=== PATIENT | female | born 1945 | race Caucasian/White ===

== ENCOUNTER 2018-12-03 09:04 | Emergency (ER) | payer OTHER, BC ==
[2018-12-03] MEDS ORDERED: TETANUS & DIPHTHERIA TOX,ADULT 0.5 ML VIAL ONE (11:23)
--- NOTE | 2018-12-03 11:27 | RAD REPORT ---
EXAM DESCRIPTION: RAD - Foot Left 3 View - 12/03/2018 10:35 am CLINICAL HISTORY: Left Foot pain FINDINGS: No fracture or dislocation is seen. No radiopaque foreign body seen
--- NOTE | 2018-12-03 11:42 | EDPHYS ---
Physician Documentation [facility] Name: Aniya Goldstein Age: 73 yrs Sex: Female : 1945 Arrival Date: 12/03/2018 Time: 09:07 Bed 24 Private MD: Chapincito Polanco E ED Physician Kayode Hanson HPI: 12/03 12:22 This 73 yrs old Female presents to ER via Ambulatory with complaints of Foot kb Injury. 12:24 The patient presents with a contusion, an injury, pain, tenderness. The complaints kb affect the left foot. Context: The problem was sustained outdoors, resulted from stumbled after stepping on a nail while fixing a fence, the patient can partially bear weight, the patient is able to ambulate. Onset: The symptoms/episode began/occurred yesterday. Modifying factors: The symptoms are alleviated by nothing, the symptoms are aggravated by weight bearing. Associated signs and symptoms: The patient has no apparent associated signs or symptoms. Severity of symptoms: At their worst the symptoms were moderate, in the emergency department the symptoms are unchanged. The patient has not experienced similar symptoms in the past. The patient has not recently seen a physician. Pt reports she was fixing a fence yesterday and threw a board down that had a nail in it. She accidentally stepped on the nail and when she tried to pull it out she fell. . Historical: - Allergies: 09:25 PENICILLINS; aa5 - PMHx: 09:25 Glaucoma; Chronic back pain and hip pain; aa5 - Immunization history:: Last tetanus immunization: unknown. - Social history:: Smoking status: Patient/guardian denies using tobacco. - Ebola Screening: : No symptoms or risks identified at this time. ROS: 12:19 Constitutional: Negative for fever, chills, and weight loss, Neck: Negative for injury, kb pain, and swelling, Cardiovascular: Negative for chest pain, palpitations, and edema, Respiratory: Negative for shortness of breath, cough, wheezing, and pleuritic chest pain, Abdomen/GI: Negative for abdominal pain, nausea, vomiting, diarrhea, and constipation, Back: Negative for injury and pain, Neuro: Negative for headache, weakness, numbness, tingling, and seizure. 12:19 MS/extremity: Positive for injury or acute deformity, contusion, ecchymosis, pain, puncture, of the left foot. Exam: 12:19 Constitutional: This is a well developed, well nourished patient who is awake, alert, kb and in no acute distress. Head/Face: Normocephalic, atraumatic. Chest/axilla: Normal chest wall appearance and motion. Nontender with no deformity. No lesions are appreciated. Cardiovascular: Regular rate and rhythm with a normal S1 and S2. No gallops, murmurs, or rubs. Normal PMI, no JVD. No pulse deficits. Respiratory: Lungs have equal breath sounds bilaterally, clear to auscultation and percussion. No rales, rhonchi or wheezes noted. No increased work of breathing, no retractions or nasal flaring. Abdomen/GI: Soft, non-tender, with normal bowel sounds. No distension or tympany. No guarding or rebound. No evidence of tenderness throughout. Back: No spinal tenderness. No costovertebral tenderness. Full range of motion. Neuro: Awake and alert, GCS 15, oriented to person, place, time, and situation. Cranial nerves II-XII grossly intact. Motor strength 5/5 in all extremities. Sensory grossly intact. Cerebellar exam normal. Normal gait. 12:19 Musculoskeletal/extremity: Extremities: grossly normal except: noted in the left foot: contusion, ecchymosis, pain, ROM: intact in all extremities, Circulation is intact in all extremities. Sensation intact. Weight bearing: able to fully bear weight. Vital Signs: 09:25 BP 97 / 68; Pulse 78; Resp 16 S; Temp 98.5(O); Pulse Ox 98% on R/A; Weight 61.23 kg aa5 (R); Height 5 ft. 5 in. (165.10 cm) (R); Pain 4/10; 11:45 BP 118 / 75; Pulse 60; Resp 18; Pulse Ox 99% on R/A; wh 09:25 Body Mass Index 22.46 (61.23 kg, 165.10 cm) aa5 MDM: 10:49 Patient medically screened. kb 11:39 Data reviewed: vital signs, nurses notes. Data interpreted: Pulse oximetry: on room air kb is 98 %. Interpretation: normal. Counseling: I had a detailed discussion with the patient and/or guardian regarding: the historical points, exam findings, and any diagnostic results supporting the discharge/admit diagnosis, radiology results, the need for outpatient follow up, a family practitioner, to return to the emergency department if symptoms worsen or persist or if there are any questions or concerns that arise at home. 12/03 09:28 Order name: Foot Left 3 View XRAY; Complete Time: 11:34 kb 12/03 11:41 Order name: Orthopedic shoe; Complete Time: 11:46 kb Administered Medications: 11:25 Drug: Tetanus-Diphtheria Toxoid Adult 0.5 ml {Product Marketing Manager: [employer]. Exp: 08/03/2020. Lot #: [id number]. } Route: IM; Site: right deltoid; 12:00 Follow up: Response: No adverse reaction Disposition: 18:59 Co-signature as Attending Physician, Kayode Hanson MD. rn Disposition: 12/03/18 11:40 Discharged to Home. Impression: Puncture wound without foreign body of foot, Contusion of left foot. - Condition is Stable. - Discharge Instructions: Puncture Wound, [id number], Foot Contusion, [id number]. - Medication Reconciliation Form, Thank You Letter, Antibiotic Education, Prescription Opioid Use form. - Follow up: Emergency Department; When: As needed; Reason: Worsening of condition. Follow up: Private Physician; When: 2 - 3 days; Reason: Recheck today's complaints, Continuance of care, Re-evaluation by your physician. Signatures: Dispatcher [employer] EDGA Sandra Gupta, SHIP/REC/DOC CONTROL-C SHIP/REC/DOC CONTROL-Ckb Kayode Hanson MD MD rn Calderon, Audri RN RN aa5 Carla Gerard Corrections: (The following items were deleted from the chart) 12:00 11:40 12/03/2018 11:40 Discharged to Home. Impression: Puncture wound without foreign wh body of foot; Contusion of left foot. Condition is Stable. Forms are Medication Reconciliation Form, Thank You Letter, Antibiotic Education, Prescription Opioid Use. Follow up: Emergency Department; When: As needed; Reason: Worsening of condition. Follow up: Private Physician; When: 2 - 3 days; Reason: Recheck today's complaints, Continuance of care, Re-evaluation by your physician. kb
--- NOTE | 2018-12-03 11:42 | ER ---
Nurse's Notes [facility] Name: Aniya Goldstein Age: 73 yrs Sex: Female : 1945 Arrival Date: 12/03/2018 Time: 09:07 Bed 24 Private MD: Chapincito Polanco E Diagnosis: Puncture wound without foreign body of foot;Contusion of left foot Presentation: 12/03 09:23 Presenting complaint: Patient states: "I stepped on a nail yesterday and fell, the nail aa5 went through my shoe". Pt c/o pain to left foot, bruising noted to left foot. Transition of care: patient was not received from another setting of care. Onset of symptoms was November 2018. Risk Assessment: Do you want to hurt yourself or someone else? Patient reports no desire to harm self or others. Initial Sepsis Screen: Does the patient meet any 2 criteria? No. Patient's initial sepsis screen is negative. Does the patient have a suspected source of infection? No. Patient's initial sepsis screen is negative. Care prior to arrival: None. 09:23 Method Of Arrival: Ambulatory [facility] 09:23 Acuity: DEJAN 4 aa5 Triage Assessment: 10:20 Injury Description: Puncture sustained to ball of left foot. wh Historical: - Allergies: 09:25 PENICILLINS; aa5 - PMHx: 09:25 Glaucoma; Chronic back pain and hip pain; aa5 - Immunization history:: Last tetanus immunization: unknown. - Social history:: Smoking status: Patient/guardian denies using tobacco. - Ebola Screening: : No symptoms or risks identified at this time. Screenin:58 Abuse screen: Denies threats or abuse. Denies injuries from another. Nutritional wh screening: No deficits noted. Tuberculosis screening: No symptoms or risk factors identified. Fall Risk None identified. Assessment: 11:40 General: Appears in no apparent distress. Behavior is calm, cooperative, appropriate wh for age. Pain: Complains of pain in ball of left foot Pain does not radiate. Pain currently is 3 out of 10 on a pain scale. Quality of pain is described as aching. Neuro: Level of Consciousness is awake, alert, obeys commands. Cardiovascular: Capillary refill < 3 seconds. Respiratory: Airway is patent Respiratory effort is even, unlabored, Respiratory pattern is regular, symmetrical. GI: Abdomen is flat, non-distended. : No signs and/or symptoms were reported regarding the genitourinary system. EENT: No signs and/or symptoms were reported regarding the EENT system. Derm: Skin is intact, is healthy with good turgor, Skin is pink, warm \\T\\ dry. normal. Musculoskeletal: Circulation, motion, and sensation intact. Vital Signs: 09:25 BP 97 / 68; Pulse 78; Resp 16 S; Temp 98.5(O); Pulse Ox 98% on R/A; Weight 61.23 kg aa5 (R); Height 5 ft. 5 in. (165.10 cm) (R); Pain 4/10; 11:45 BP 118 / 75; Pulse 60; Resp 18; Pulse Ox 99% on R/A; wh 09:25 Body Mass Index 22.46 (61.23 kg, 165.10 cm) aa5 ED Course: 09:07 Patient arrived in ED. rg4 09:07 Chapincito Polanco MD is Private Physician. rg4 09:23 Arm band placed on. aa5 09:24 Triage completed. aa5 09:25 [facility] Gu[facility]C [facility] kb 09:25 Kayode Hanson MD is Attending Physician. kb 10:37 Foot Left 3 View XRAY In Process Unspecified. EDMS 10:40 Patient has correct armband on for positive identification. Bed in low position. Call light in reach. Side rails up X 1. Pulse ox on. NIBP on. 10:50 Carla Gerard is Primary Nurse. 11:58 No provider procedures requiring assistance completed. Patient did not have IV access during this emergency room visit. Administered Medications: 11:25 Drug: Tetanus-Diphtheria Toxoid Adult 0.5 ml {Etymology Professor: [employer]. Exp: 08/03/2020. Lot #: [id number]. } Route: IM; Site: right deltoid; 12:00 Follow up: Response: No adverse reaction Outcome: 11:40 Discharge ordered by . kb 11:59 Discharged to home ambulatory. 11:59 Condition: good 11:59 Discharge instructions given to patient, Instructed on discharge instructions, follow up and referral plans. wound care, Demonstrated understanding of instructions, follow-up care, wound care. 12:00 Patient left the ED. Signatures: Dispatcher [employer] Sandra Wahl, RN MED SURG-C RN MED SURG-Ckb Angie Obregon, RN RN aa5 Arabella Sapp4 Carla Gerard
[2018-12-03 12:06] VITALS: TEMP 98.5
[2018-12-03 12:08] VITALS: BP 118/75; O2SAT 99
== END 2018-12-03 12:00 | disposition home or self-care (01) ==
LOC: ER 09:04
DX: S91.332A Puncture wound without foreign body, left foot, initial encounter (principal); S90.32XA Contusion of left foot, initial encounter; W45.0XXA Nail entering through skin, initial encounter; Y93.89 Activity, other specified; Y92.89 Other specified places as the place of occurrence of the external cause; Z23 Encounter for immunization; Z88.0 Allergy status to penicillin
CPT/HCPCS: 90471; 90714; 99283

== ENCOUNTER 2020-09-24 11:02 | Emergency (ER) | payer OTHER, BC ==
--- OUTSIDE RECORDS SUMMARY | 2020-09-24 11:58 | XMS REPORT | Continuity of Care Document ---
:1945 Author Organization [facility] Address [address] [place] [address] Dr. Lott [address] [place] [id number] Care Team Providers Name Role Phone Unavailable Unavailable Unavailable Problems This patient has no known problems. Allergies, Adverse Reactions, Alerts This patient has no known allergies or adverse reactions. Medications This patient has no known medications. Procedures This patient has no known procedures. Results This patient has no known results.
--- NOTE | 2020-09-24 13:27 | RAD REPORT ---
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 Trace suprapatellar joint effusion. Subtle lucenc y is seen in the lateral aspect of the patella which could be a nondisplaced fracture. Recommend magalie elation with clinical point tenderness in the lateral patellar region.
--- NOTE | 2020-09-24 14:44 | EDPHYS ---
Physician Documentation [facility] Name: Aniya Goldstein Age: 74 yrs Sex: Female : 1945 Arrival Date: 09/24/2020 Time: 11:04 Bed DX4 Private MD: ED Physician Javid Jerez HPI: 09/24 14:35 This 74 yrs old Female presents to ER via Ambulatory with complaints of Fall charles Injury. 14:35 Details of fall: The patient fell from an upright position, while walking. Onset: The charles symptoms/episode began/occurred 2 day(s) ago. Associated injuries: The patient sustained lateral aspect of right knee and right knee, decreased range of motion, painful injury. Severity of symptoms: At their worst the symptoms were mild, in the emergency department the symptoms are unchanged. The patient has not experienced similar symptoms in the past. Historical: - Allergies: 11:39 PENICILLINS; jl7 - PMHx: 11:39 Chronic back pain and hip pain; Glaucoma; jl7 - Immunization history:: Adult Immunizations up to date, Client reports receiving the 2nd dose of the Covid vaccine. - Social history:: Smoking status: Patient denies any tobacco usage or history of. - Family history:: not pertinent. ROS: 14:35 Constitutional: Negative for fever, chills, and weight loss, Eyes: Negative for injury, charles pain, redness, and discharge, ENT: Negative for injury, pain, and discharge, Neck: Negative for injury, pain, and swelling, Cardiovascular: Negative for chest pain, palpitations, and edema, Respiratory: Negative for shortness of breath, cough, wheezing, and pleuritic chest pain, Abdomen/GI: Negative for abdominal pain, nausea, vomiting, diarrhea, and constipation, Back: Negative for injury and pain, : Negative for injury, bleeding, discharge, and swelling, Skin: Negative for injury, rash, and discoloration, Neuro: Negative for headache, weakness, numbness, tingling, and seizure, Psych: Negative for depression, anxiety, suicide ideation, homicidal ideation, and hallucinations, Allergy/Immunology: Negative for hives, rash, and allergies, Endocrine: Negative for neck swelling, polydipsia, polyuria, polyphagia, and marked weight changes, Hematologic/Lymphatic: Negative for swollen nodes, abnormal bleeding, and unusual bruising. 14:35 MS/extremity: Positive for decreased range of motion, pain, of the lateral aspect of right knee. Exam: 14:35 Constitutional: This is a well developed, well nourished patient who is awake, alert, charles and in no acute distress. Head/Face: Normocephalic, atraumatic. Eyes: Pupils equal round and reactive to light, extra-ocular motions intact. Lids and lashes normal. Conjunctiva and sclera are non-icteric and not injected. Cornea within normal limits. Periorbital areas with no swelling, redness, or edema. ENT: Nares patent. No nasal discharge, no septal abnormalities noted. Tympanic membranes are normal and external auditory canals are clear. Oropharynx with no redness, swelling, or masses, exudates, or evidence of obstruction, uvula midline. Mucous membranes moist. Neck: Trachea midline, no thyromegaly or masses palpated, and no cervical lymphadenopathy. Supple, full range of motion without nuchal rigidity, or vertebral point tenderness. No Meningismus. Chest/axilla: Normal chest wall appearance and motion. Nontender with no deformity. No lesions are appreciated. Cardiovascular: Regular rate and rhythm with a normal S1 and S2. No gallops, murmurs, or rubs. Normal PMI, no JVD. No pulse deficits. Respiratory: Lungs have equal breath sounds bilaterally, clear to auscultation and percussion. No rales, rhonchi or wheezes noted. No increased work of breathing, no retractions or nasal flaring. Abdomen/GI: Soft, non-tender, with normal bowel sounds. No distension or tympany. No guarding or rebound. No evidence of tenderness throughout. Back: No spinal tenderness. No costovertebral tenderness. Full range of motion. Female : Normal external genitalia. Skin: Warm, dry with normal turgor. Normal color with no rashes, no lesions, and no evidence of cellulitis. Neuro: Awake and alert, GCS 15, oriented to person, place, time, and situation. Cranial nerves II-XII grossly intact. Motor strength 5/5 in all extremities. Sensory grossly intact. Cerebellar exam normal. Normal gait. Psych: Awake, alert, with orientation to person, place and time. Behavior, mood, and affect are within normal limits. 14:35 Musculoskeletal/extremity: Extremities: grossly normal except: noted in the right knee: decreased ROM, pain. Vital Signs: 11:38 BP 111 / 64; Pulse 61; Resp 15; Temp 98.9; Pulse Ox 99% on R/A; Pain 3/10; jl7 MDM: 14:11 Patient medically screened. charles 14:35 Differential diagnosis: contusion, fracture, sprain, strain. Data reviewed: vital charles signs, nurses notes, radiologic studies, plain films. Data interpreted: bus driver/monitor: not applicable for this patient encounter. rate is 61 beats/min, Pulse oximetry: on room air is 99 %. Test interpretation: by ED physician or midlevel provider: plain radiologic studies. Counseling: I had a detailed discussion with the patient and/or guardian regarding: the historical points, exam findings, and any diagnostic results supporting the discharge/admit diagnosis, radiology results, the need for outpatient follow up, for definitive care, a family practitioner, a orthopedic surgeon. 09/24 12:03 Order name: Knee Right 3 View XRAY iw 09/24 14:44 Order name: Keith wrap-joint; Complete Time: 15:03 charles 09/24 14:44 Order name: Ice pack; Complete Time: 15:03 charles Administered Medications: 15:03 Drug: Motrin (ibuprofen) 400 mg Route: PO; iw 15:15 Follow up: Response: No adverse reaction iw Disposition Summary: 09/24/20 14:43 Discharge Ordered Location: Home charles Problem: new charles Symptoms: have improved charles Condition: Stable charles Diagnosis - Fracture of patella - lateral aspect , nondisplaced charles Followup: charles - With: Private Physician - When: 2 - 3 days - Reason: Recheck today's complaints, Continuance of care, Re-evaluation by your physician Followup: charles - With: Jimenez Castañeda MD - When: 2 - 3 days - Reason: Recheck today's complaints, Re-evaluation by your physician Discharge Instructions: - Discharge Summary Sheet charles - Fall Prevention in the Home, Adult charles - Patellar Fracture, Adult charles - Fall Prevention in the Home, Adult, [id number] charles Forms: - Medication Reconciliation Form charles - Thank You Letter charles - Antibiotic Education charles - Prescription Opioid Use charles Prescriptions: - acetaminophen-codeine 300-15 mg Oral tablet - take 1 tablet by ORAL route every 4-6 hours; 20 tablet; Refills: 0, Product charles Selection Permitted - Motrin IB 200 mg Oral Tablet - take 2 tablet by ORAL route every 6 hours As needed as needed with food; 20 charles tablet; Refills: 0, Product Selection Permitted Signatures: Dispatcher [employer] Javid Bright, Colette Suggs MD, cha RN Yaima Conroy RN RN jl7
--- NOTE | 2020-09-24 14:44 | ER ---
Nurse's Notes [facility] Name: Aniya Goldstein Age: 74 yrs Sex: Female : 1945 Arrival Date: 09/24/2020 Time: 11:04 Bed DX4 Private MD: Diagnosis: Fracture of patella-lateral aspect , nondisplaced Presentation: 09/24 11:38 Chief complaint: Patient states: Fell yesterday chasing after grandkids and my right jl7 knee hurts. Coronavirus screen: Client denies travel out of the [place] in the last 14 days. At this time, the client does not indicate any symptoms associated with coronavirus-19. Ebola Screen: No symptoms or risks identified at this time. Initial Sepsis Screen: Does the patient meet any 2 criteria? No. Patient's initial sepsis screen is negative. Does the patient have a suspected source of infection? No. Patient's initial sepsis screen is negative. Risk Assessment: Do you want to hurt yourself or someone else? Patient reports no desire to harm self or others. Onset of symptoms was September 23, 2020. 11:38 Method Of Arrival: Ambulatory [facility] 11:38 Acuity: DEJAN 4 jl7 Triage Assessment: 14:40 General: Appears in no apparent distress. Behavior is calm. iw Historical: - Allergies: 11:39 PENICILLINS; jl7 - PMHx: 11:39 Chronic back pain and hip pain; Glaucoma; jl7 - Immunization history:: Adult Immunizations up to date, Client reports receiving the 2nd dose of the Covid vaccine. - Social history:: Smoking status: Patient denies any tobacco usage or history of. - Family history:: not pertinent. Screenin:02 Abuse screen: Denies threats or abuse. Denies injuries from another. Nutritional iw screening: No deficits noted. Tuberculosis screening: No symptoms or risk factors identified. Fall Risk None identified. Assessment: 14:15 General: Appears in no apparent distress. comfortable, Behavior is calm, cooperative. iw Pain: Complains of pain in right knee and lateral aspect of right knee. Neuro: Level of Consciousness is awake, alert, obeys commands, Oriented to person, place, time. Respiratory: Respiratory effort is even, unlabored, Respiratory pattern is regular, symmetrical. Derm: Skin is intact. Musculoskeletal: Range of motion: limited in right knee. Vital Signs: 11:38 BP 111 / 64; Pulse 61; Resp 15; Temp 98.9; Pulse Ox 99% on R/A; Pain 3/10; jl7 ED Course: 11:04 Patient arrived in ED. as 11:39 Triage completed. jl7 11:39 Arm band placed on right wrist. jl7 12:00 Patient has correct armband on for positive identification. iw 13:09 Knee Right 3 View XRAY In Process Unspecified. EDMS 14:11 Javid Jerez MD is Attending Physician. [facility] 14:34 Colette Puente, RN is Primary Nurse. iw 14:42 Jimenez Castañeda MD is Referral Physician. charles 15:02 No provider procedures requiring assistance completed. Patient did not have IV access iw during this emergency room visit. Administered Medications: 15:03 Drug: Motrin (ibuprofen) 400 mg Route: PO; iw 15:15 Follow up: Response: No adverse reaction iw Outcome: 14:43 Discharge ordered by . charles 15:02 Discharged to home ambulatory. iw 15:02 Condition: good 15:02 Discharge instructions given to patient, Instructed on discharge instructions, follow up and referral plans. medication usage, Demonstrated understanding of instructions, follow-up care, medications, Prescriptions given X 2. 15:03 Patient left the ED. iw Signatures: Dispatcher [employer] EDCO Javid Jerez MD MD cha Martinez, Amelia as Colette Puente, RN RN iw Yaima Lazar RN RN jl7
[2020-09-24 15:15] VITALS: BP 111/64; TEMP 98.9; O2SAT 99
[2020-09-24] MEDS ORDERED: IBUPROFEN 400 MG TAB ONE (15:19)
== END 2020-09-24 15:03 | disposition home or self-care (01) ==
LOC: ER 11:02
DX: S82.001A Unspecified fracture of right patella, initial encounter for closed fracture (principal); G89.29 Other chronic pain; Z88.0 Allergy status to penicillin
CPT/HCPCS: 99283

== ENCOUNTER 2021-02-04 08:30 | Emergency (ER) | payer BC, OTHER ==
--- OUTSIDE RECORDS SUMMARY | 2021-02-04 08:33 | XMS REPORT | Continuity of Care Document ---
:1945 Author Organization [facility] t Address [facility] Jamal Lott [address] [place] [address] Care Team Providers Name Role Phone Martha RICHARDSON Attending Clinician Unavailable Doctor Unassigned, Name Attending Clinician Unavailable Martha Kwon Attending Clinician Payers Payer Name Policy Type Policy Number Effective Date Expiration Date Martha aguilera MEDICARE PART A [id number] 2011 \T\ B [facility]:00[id number] 2016 00:00:00 Problems Condition Condition Condition Status Onset Resolution Last Treating Co mments Source Name Details Category Date Date Treatment Clinician Date Right hip Right hip Disease Active 2015-03 Uni vers pain pain 0-28 ity of 00:00: [place] [address] Medical Branch Allergies, Adverse Reactions, Alerts Allergy Allergy Status Severity Reaction(s) Onset Inactive Treating Comm ents Source Name Type Date Date Clinician PENICILL Drug Active Other-Cmnt 2015-03 Univ ers INS Class 0-28 ity of 00:00: [place] [facility] Penicill Propensi Active Other - See 2015-03 Redness Univers ins ty to comments 0-28 at ity of adverse 00:00: injection [place] reaction 00 site Medical s Branch Social History Social Habit Start Date Stop Date Quantity Comments Source Tobacco use and 2020-09-27 2020-09-27 Never used Universit y of exposure 00:00:00 00:00:00 [facility] Alcohol intake 2020-09-27 2020-09-27 Current drinker Unive rsity of 00:00:00 00:00:00 of [facility] Branch Sex Ass[birth year] At [birth year] Universit y of 00:00:00 00:00:00 [facility] Smoking Status Start Date Stop Date Source Never smoker [facility] Medical Branch Medications Ordered Filled Start Stop Current Ordering Indication Dosage Frequency Signature Comments Components Source Medication Medication Date Date Medication? Clinician (SIG) Name Name DICLOFENAC 2018-03 Yes [id number] TAKE 1 Univers 75 mg EC 1-14 9102 TABLET BY ity of tablet 00:00: MOUTH [place] 00 TWICE Medical DAILY WITH Branch MEALS DICLOFENAC 2018-03 Yes [id number] TAKE 1 Univers 75 mg EC 1-14 9102 TABLET BY ity of tablet 00:00: MOUTH TWICE Medical DAILY WITH Branch MEALS DICLOFENAC 2018-03 Yes [id number] TAKE 1 Univers 75 mg EC 1-14 9102 TABLET BY ity of tablet 00:00: MOUTH 00 TWICE Medical DAILY WITH Branch MEALS DICLOFENAC 2018-03 Yes [id number] TAKE 1 Univers 75 mg EC 1-14 9102 TABLET BY ity of tablet 00:00: MOUTH 00 TWICE Medical DAILY WITH Branch MEALS DICLOFENAC 2018-03 Yes [id number] TAKE 1 Univers 75 mg EC 1-14 9102 TABLET BY ity of tablet 00:00: MOUTH TWICE Medical DAILY WITH Branch MEALS DICLOFENAC 2015-03 Yes TAKE 1 Unive rs 75 mg EC 2-28 TABLET BY ity of tablet 00:00: MOUTH 00 TWICE Medical DAILY WITH Branch MEALS DICLOFENAC 2015-03 Yes TAKE 1 Unive rs 75 mg EC 2-28 TABLET BY ity of tablet 00:00: MOUTH 00 TWICE Medical DAILY WITH Branch MEALS DICLOFENAC 2015-03 Yes TAKE 1 Unive rs 75 mg EC 2-28 TABLET BY ity of tablet 00:00: MOUTH 00 TWICE Medical DAILY WITH Branch MEALS DICLOFENAC 2015-03 Yes TAKE 1 Unive rs 75 mg EC 2-28 TABLET BY ity of tablet 00:00: MOUTH 00 TWICE Medical DAILY WITH Branch MEALS DICLOFENAC 2015-03 Yes TAKE 1 Unive rs 75 mg EC 2-28 TABLET BY ity of tablet 00:00: MOUTH 00 TWICE Medical DAILY WITH Branch MEALS SERTraline 2015-03 Yes TK 3 TS PO U nivers (ZOLOFT) 50 0-24 QD ity of mg tablet 00:00: [place] [facility] SERTraline 2015-03 Yes TK 3 TS PO U nivers (ZOLOFT) 50 0-24 QD ity of mg tablet 00:00: [place] [facility] SERTraline 2015-03 Yes TK 3 TS PO U nivers (ZOLOFT) 50 0-24 QD ity of mg tablet 00:00: [place] [address] [facility] SERTraline 2015-03 Yes TK 3 TS PO U nivers (ZOLOFT) 50 0-24 QD ity of mg tablet 00:00: [facility] SERTraline 2015-03 Yes TK 3 TS PO U nivers (ZOLOFT) 50 0-24 QD ity of mg tablet 00:00: [facility] simvastatin 2015-03 Yes TK 1 T PO U nivers (ZOCOR) 40 0-22 D. ity of mg tablet 00:00: [facility] simvastatin 2015-03 Yes TK 1 T PO U nivers (ZOCOR) 40 0-22 D. ity of mg tablet 00:00: [facility] simvastatin 2015-03 Yes TK 1 T PO U nivers (ZOCOR) 40 0-22 D. ity of mg tablet 00:00: [facility] simvastatin 2015-03 Yes TK 1 T PO U nivers (ZOCOR) 40 0-22 D. ity of mg tablet 00:00: [facility] simvastatin 2015-03 Yes TK 1 T PO U nivers (ZOCOR) 40 0-22 D. ity of mg tablet 00:00: [facility] traMADOL 2015-03 Yes TK 1 T PO Univ ers (ULTRAM) 50 0-12 TID PRN P ity of mg tablet 00:00: [place] [facility] traMADOL 2015-03 Yes TK 1 T PO Univ ers (ULTRAM) 50 0-12 TID PRN P ity of mg tablet 00:00: [facility] traMADOL 2015-03 Yes TK 1 T PO Univ ers (ULTRAM) 50 0-12 TID PRN P ity of mg tablet 00:00: [facility] traMADOL 2015-03 Yes TK 1 T PO Univ ers (ULTRAM) 50 0-12 TID PRN P ity of mg tablet 00:00: [place] [facility] traMADOL 2015-03 Yes TK 1 T PO Univ ers (ULTRAM) 50 0-12 TID PRN P ity of mg tablet 00:00: [facility] sumatriptan 2015-03 Yes TK 1 T PO U nivers (IMITREX) 0-10 NEEDED ity o f 100 mg 00:00: FOR [facility] HEADACHE. Medical MAY REPEAT Branch IN 2 HOURS. sumatriptan 2015-03 Yes TK 1 T PO U nivers (IMITREX) 0-10 NEEDED ity o f 100 mg 00:00: FOR [place] tablet 00 HEADACHE. Medical MAY REPEAT Branch IN 2 HOURS. sumatriptan 2015-03 Yes TK 1 T PO U nivers (IMITREX) 0-10 NEEDED ity o f 100 mg 00:00: FOR [place] tablet 00 HEADACHE. Medical MAY REPEAT Branch IN 2 HOURS. sumatriptan 2015-03 Yes TK 1 T PO U nivers (IMITREX) 0-10 NEEDED ity o f 100 mg 00:00: FOR [place] tablet 00 HEADACHE. Medical MAY REPEAT Branch IN 2 HOURS. sumatriptan 2015-03 Yes TK 1 T PO U nivers (IMITREX) 0-10 NEEDED ity o f 100 mg 00:00: FOR [place] tablet 00 HEADACHE. Medical MAY REPEAT Branch IN 2 HOURS. ALPRAZolam 2015-03 Yes TK 1 T PO Un claudia (XANAX) 0.5 0-07 TID. ity of mg tablet 00:00: [facility] ALPRAZolam 2015-03 Yes TK 1 T PO Un claudia (XANAX) 0.5 0-07 TID. ity of mg tablet 00:00: [facility] ALPRAZolam 2015-03 Yes TK 1 T PO Un claudia (XANAX) 0.5 0-07 TID. ity of mg tablet 00:00: [facility] ALPRAZolam 2015-03 Yes TK 1 T PO Un claudia (XANAX) 0.5 0-07 TID. ity of mg tablet 00:00: [facility] ALPRAZolam 2015-03 Yes TK 1 T PO Un claudia (XANAX) 0.5 0-07 TID. ity of mg tablet 00:00: [facility] oxybutynin 2015-03 Yes TK 1 T PO Un claudia (DITROPAN-X 0-05 QD ity of L) 10 mg 24 00:00: [place] hr tablet [facility] oxybutynin 2015-03 Yes TK 1 T PO Un claudia (DITROPAN-X 0-05 QD ity of L) 10 mg 24 00:00: [place] hr tablet [facility] oxybutynin 2015-03 Yes TK 1 T PO Un claudia (DITROPAN-X 0-05 QD ity of L) 10 mg 24 00:00: [place] hr tablet 00 Medical Branch oxybutynin 2015-03 Yes TK 1 T PO Un claudia (DITROPAN-X 0-05 QD ity of L) 10 mg 24 00:00: [place] hr tablet 00 Medical Branch oxybutynin 2015-03 Yes TK 1 T PO Un claudia (DITROPAN-X 0-05 QD ity of L) 10 mg 24 00:00: [place] hr tablet 00 Medical Branch SUMAtriptan Yes INJECT Univ ers (IMITREX) 6 8-11 ONE-HALF ity of mg/0.5 mL 00:00: (0.5) [place] injection 00 ML(S) Medical SUBCUTANEO Branch USLY FOR HEADACHE. MAY REPEAT IN ONE HOUR NEEDED. SUMAtriptan Yes INJECT Univ ers (IMITREX) 6 8-11 ONE-HALF ity of mg/0.5 mL 00:00: (0.5) [place] injection 00 ML(S) Medical SUBCUTANEO Branch USLY FOR HEADACHE. MAY REPEAT IN ONE HOUR NEEDED. SUMAtriptan Yes INJECT Univ ers (IMITREX) 6 8-11 ONE-HALF ity of mg/0.5 mL 00:00: (0.5) [place] injection 00 ML(S) Medical SUBCUTANEO Branch USLY FOR HEADACHE. MAY REPEAT IN ONE HOUR NEEDED. SUMAtriptan Yes INJECT Univ ers (IMITREX) 6 8-11 ONE-HALF ity of mg/0.5 mL 00:00: (0.5) [place] injection 00 ML(S) Medical SUBCUTANEO Branch USLY FOR HEADACHE. MAY REPEAT IN ONE HOUR NEEDED. SUMAtriptan Yes INJECT Univ ers (IMITREX) 6 8-11 ONE-HALF ity of mg/0.5 mL 00:00: (0.5) [place] injection 00 ML(S) Medical SUBCUTANEO Branch USLY FOR HEADACHE. MAY REPEAT IN ONE HOUR NEEDED. diclofenac Yes TAKE 1 Unive rs (VOLTAREN) 3-29 TABLET BY ity of 50 mg EC 00:00: MOUTH [place] tablet 00 TWICE Medical DAILY Branch diclofenac Yes TAKE 1 Unive rs (VOLTAREN) 3-29 TABLET BY ity of 50 mg EC 00:00: MOUTH [place] tablet 00 TWICE Medical DAILY Branch diclofenac Yes TAKE 1 Unive rs (VOLTAREN) 3-29 TABLET BY ity of 50 mg EC 00:00: MOUTH [place] tablet 00 TWICE Medical DAILY Branch diclofenac Yes TAKE 1 Unive rs (VOLTAREN) 3-29 TABLET BY ity of 50 mg EC 00:00: MOUTH [place] tablet 00 TWICE Medical DAILY Branch diclofenac Yes TAKE 1 Unive rs (VOLTAREN) 3-29 TABLET BY ity of 50 mg EC 00:00: MOUTH [place] tablet 00 TWICE Medical DAILY Branch Vital Signs Vital Name Observation Time Observation Value Comments Source Systolic blood 2020-09-27 13:30:00 122 mm[Hg] [facility]iver [facility] Diastolic blood 2020-09-27 13:30:00 [facility] 2020-09-27 13:30:00 62 /min [facility] Body height 2020-09-27 13:30:[address] [facility] Body weight 2020-09-27 13:30:[address] [facility] BMI 2020-09-27 13:30:00 22.63 kg/m2 [facility] Procedures Procedure Date / Time Performing Clinician Source Performed ASSIGNMENT OF BENEFITS 2020-11-08 14:30:12 Doctor Unassigned, No [facility] DME/SUPPLY JUSTIFICATION 2020-09-27 05:01:00 Doctor Unassigned, No [facility] Encounters Start End Encounter Admission Attending Care Care Encounter Source Date/Time Date/Time Type Type Clinicians Facility Department ID 2020-11-08 2020-11-08 Outpatient Jean-Pierre RICHARDSON [facility] [id number] Univers 09:30:00 09:30:00 MARY [id number] [facility] 2020-11-08 2020-11-08 Outpatient Jean-Pierre RICHARDSON [facility] [id number] Univers 09:30:00 09:30:00 MARY [facility] 2020-11-08 2020-11-08 Orders Doctor JENY [id number] Univers 00:00:00 00:00:00 Only Unassigned, CONNOR [id number] ity of [facility] [id number] Jacek as [phone] [facility] 009 Branch 2020-11-08 2020-11-08 Letter Doctor JENY [id number] Univers 00:00:00 00:00:00 (Out) Unassigned, CONNOR [id number] ity of [facility] [id number] Jacek as [phone] [facility] 044 Branch 2020-09-27 2020-09-27 Office Johnson [facility] [id number] Univers 08:22:39 08:37:39 Visit [facility] [id number] it y of Surgical [id number] Jacek as Specialti [phone] [facility] 2020-09-27 2020-09-27 [id number] Univers 08:30:00 08:30:00 MARY [id number] ity [facility] 2020-09-27 2020-09-27 [facility] [id number] Univers 08:30:00 08:30:[facility] 2020-09-[facility] 2020-09-27 Orders Doctor FERMIN [id number] Univers 00:00:00 00:00:00 Only Unassigned, CONNOR [id number] ity of [facility] [id number] Jacek as [phone] [address] Results This patient has no known results.
--- NOTE | 2021-02-04 09:34 | RAD REPORT ---
EXAM DESCRIPTION: RAD - Knee Left 3 View - 02/04/2021 9:17 am CLINICAL HISTORY: injury;Pain COMPARISON: Knee Left 3 View dated 01/27/2019 FINDINGS: No acute fracture. No malalignment. Patellofemoral compartment spurring. Mild mediolateral compartment spurring. IMPRESSION: No acute osseous abnormality involving the left knee.
--- NOTE | 2021-02-04 09:53 | EDPHYS ---
Physician Documentation [facility] Name: Aniya Goldstein Age: 75 yrs Sex: Female : 1945 Arrival Date: 02/04/2021 Time: 08:34 Bed 12 Private MD: Chapincito Polanco E ED Physician Kayode Hanson HPI: 02/04 08:46 This 75 yrs old Female presents to ER via Unassigned with complaints of Fall rn Injury, Knee Pain. 08:46 Details of fall: The patient fell from a height, Large rock. Onset: The rn symptoms/episode began/occurred yesterday. Associated injuries: The patient sustained Left knee. Severity of symptoms: At their worst the symptoms were moderate, in the emergency department the symptoms have improved. The patient has not experienced similar symptoms in the past. The patient has not recently seen a physician. [place], [place] a large rock, felt pain to left knee upon landing. Denies direct trauma to the left knee. Mild swelling. Able to walk. Hurts most to flex and extend knee. Denies any other injury. Historical: - Allergies: 08:50 PENICILLINS; ap3 - Home Meds: 08:50 amlodipine oral [Active]; Propranolol Oral [Active]; sertraline oral [Active]; ap3 meloxicam oral [Active]; Tramadol Oral [Active]; - PMHx: 08:50 Chronic back pain and hip pain; Hypertensive disorder; ap3 - Immunization history:: Adult Immunizations up to date, Client reports receiving the 2nd dose of the Covid vaccine, and booster. - Family history:: not pertinent. - Social history:: Smoking status: Patient denies any tobacco usage or history of. Patient uses alcohol, one drink each night. - Hospitalizations: : No recent hospitalization is reported. ROS: 08:46 Constitutional: Negative for fever, chills, and weight loss, Neck: Negative for injury, rn pain, and swelling, Back: Negative for injury and pain, MS/Extremity: Positive for injury and pain to left knee Exam: 08:46 Constitutional: This is a well developed, well nourished patient who is awake, alert, rn and in no acute distress. Skin: Warm, dry with normal turgor. Normal color with no rashes, no lesions, and no evidence of cellulitis. MS/ Extremity: Pulses equal, no cyanosis. Neurovascular intact. Full, normal range of motion. Able to fully extend and flex left knee on her own power. No focal bony tenderness. No patellar tenderness. Small suprapatellar effusion noted. Neuro: Motor strength 5/5 in all extremities. Sensory grossly intact. Vital Signs: 08:46 BP 121 / 57; Pulse 74; Resp 17; Temp 98.4(TE); Pulse Ox 97% on R/A; Weight 77.11 kg; ap3 Height 5 ft. 5 in. (165.10 cm); Pain 3/10; 08:46 Body Mass Index 28.29 (77.11 kg, 165.10 cm) ap3 MDM: 08:37 Patient medically screened. rn 09:52 Differential diagnosis: contusion, fracture, sprain, strain. Data reviewed: vital rn signs, nurses notes, radiologic studies, plain films, and as a result, I will discharge patient. Test interpretation: by ED physician or midlevel provider: plain radiologic studies, Xray left knee negative for fracture or dislocation. Counseling: I had a detailed discussion with the patient and/or guardian regarding: the historical points, exam findings, and any diagnostic results supporting the discharge/admit diagnosis, radiology results, the need for outpatient follow up, to return to the emergency department if symptoms worsen or persist or if there are any questions or concerns that arise at home. Special discussion: I discussed with the patient/guardian in detail that at this point there is no indication for admission to the hospital. It is understood, however, that if the symptoms persist or worsen the patient needs to return immediately for re-evaluation. Based on the history and exam findings, there is no indication for further emergent testing or inpatient evaluation. I discussed with the patient/guardian the need to see the primary care provider for further evaluation of the symptoms. 02/04 08:45 Order name: XRAY Knee LEFT 3 view; Complete Time: 09:35 rn Administered Medications: No medications were administered Disposition Summary: 02/04/21 09:52 Discharge Ordered Location: Home rn Problem: new rn Symptoms: have improved rn Condition: Stable rn Diagnosis - Sprain of unspecified site of left knee, initial encounter rn Followup: rn - With: Private Physician - When: As needed - Reason: Recheck today's complaints, Re-evaluation by your physician Discharge Instructions: - Discharge Summary Sheet rn - Knee Sprain, Adult rn Forms: - Medication Reconciliation Form rn - Thank You Letter rn - Antibiotic 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
--- NOTE | 2021-02-04 09:53 | ER ---
Nurse's Notes [facility] Name: Aniya Goldstein Age: 75 yrs Sex: Female : 1945 Arrival Date: 02/04/2021 Time: 08:34 Bed 12 Private MD: Chapincito Polanco E Diagnosis: Sprain of unspecified site of left knee, initial encounter Presentation: 02/04 08:46 Chief complaint: Patient states: she fell yesterday at the beach playing with her ap3 grandson. Patient reports the fell onto the sand. Patient denies use of blood thinners. Coronavirus screen: Vaccine status: Patient reports receiving the 2nd dose of the covid vaccine. At this time, the client does not indicate any symptoms associated with coronavirus-19. Ebola Screen: No symptoms or risks identified at this time. Initial Sepsis Screen: Does the patient meet any 2 criteria? No. Patient's initial sepsis screen is negative. Does the patient have a suspected source of infection? No. Patient's initial sepsis screen is negative. Risk Assessment: Do you want to hurt yourself or someone else? Patient reports no desire to harm self or others. Onset of symptoms was February 03, 2021. 08:46 Method Of Arrival: Ambulatory ap3 08:46 Acuity: DEJAN 4 ap3 Triage Assessment: 08:48 General: Appears in no apparent distress. Behavior is calm, cooperative, appropriate ap3 for age. Pain: Complains of pain in left knee Pain began suddenly, 1 day ago. Alleviated by rest, Aggravated by increased activity. Neuro: Level of Consciousness is awake, alert, obeys commands, Oriented to person, place, time, situation, Appropriate for age Gait is steady. Cardiovascular: Patient's skin is warm and dry. Respiratory: Airway is patent Respiratory effort is even, unlabored, Respiratory pattern is regular, symmetrical. Musculoskeletal: Reports pain in left knee. Historical: - Allergies: 08:50 PENICILLINS; ap3 - Home Meds: 08:50 amlodipine oral [Active]; Propranolol Oral [Active]; sertraline oral [Active]; ap3 meloxicam oral [Active]; Tramadol Oral [Active]; - PMHx: 08:50 Chronic back pain and hip pain; Hypertensive disorder; ap3 - Immunization history:: Adult Immunizations up to date, Client reports receiving the 2nd dose of the Covid vaccine, and booster. - Family history:: not pertinent. - Social history:: Smoking status: Patient denies any tobacco usage or history of. Patient uses alcohol, one drink each night. - Hospitalizations: : No recent hospitalization is reported. Screenin:49 Abuse screen: Denies threats or abuse. Nutritional screening: No deficits noted. ap3 Tuberculosis screening: No symptoms or risk factors identified. Fall Risk Fall in past 12 months (25 points). No secondary diagnosis (0 pts). No IV (0 pts). Ambulatory Aid- None/Bed Rest/Nurse Assist (0 pts). Gait- Normal/Bed Rest/Wheelchair (0 pts) Mental Status- Oriented to own ability (0 pts). Total Knott Fall Scale indicates Low Risk Score (25-44 pts). Fall prevention measures have been instituted. Side Rails Up X 2 Placed close to Nursing Station Frequent Obs/Assesments occuring As available Patient and Family Educated on Fall Prevention Program and strategies. Assessment: 08:49 Reassessment: please see triage assessment. ap3 09:05 Reassessment: Xray at bedside at this time. jh5 09:44 Reassessment: Patient and/or family updated on plan of care and expected duration. Pain ap3 level reassessed. Patient is alert, oriented x 3, equal unlabored respirations, skin warm/dry/pink. Vital Signs: 08:46 BP 121 / 57; Pulse 74; Resp 17; Temp 98.4(TE); Pulse Ox 97% on R/A; Weight 77.11 kg; ap3 Height 5 ft. 5 in. (165.10 cm); Pain 3/10; 08:46 Body Mass Index 28.29 (77.11 kg, 165.10 cm) ap3 ED Course: 08:34 Patient arrived in ED. mr 08:35 Chapincito Polanco MD is Private Physician. mr 08:37 Yamile Sheldon, JOCELYN is Primary Nurse. ap3 08:37 Kayode Hanson MD is Attending Physician. rn 08:48 Triage completed. ap3 08:50 Arm band placed on right wrist. ap3 08:52 Patient has correct armband on for positive identification. Placed in gown. Bed in low ap3 position. Call light in reach. Side rails up X2. Pulse ox on. NIBP on. Door closed. Noise minimized. 09:17 XRAY Knee LEFT 3 view In Process Unspecified. EDMS 09:59 No provider procedures requiring assistance completed. Patient did not have IV access ap3 during this emergency room visit. Administered Medications: No medications were administered Outcome: :52 Discharge ordered by . rn 10:00 Discharged to home ambulatory. ap3 10:00 Condition: good 10:00 Discharge instructions given to patient, Instructed on discharge instructions, follow up and referral plans. Demonstrated understanding of instructions, follow-up care. 10:00 Patient left the ED. ap3 Signatures: Dispatcher [employer] EDKY Natali SternKayode MD MD rn Yamile Sheldon RN RN ap3 Zuly Tarango RN RN jh5 Corrections: (The following items were deleted from the chart) :52 08:50 PMHx: Glaucoma; ap3 ap3
== END 2021-02-04 10:00 | disposition home or self-care (01) ==
LOC: ER 08:30
DX: S83.92XA Sprain of unspecified site of left knee, initial encounter (principal); X58.XXXA Exposure to other specified factors, initial encounter; Y93.89 Activity, other specified; Y92.832 Beach as the place of occurrence of the external cause; I10 Essential (primary) hypertension; Z88.0 Allergy status to penicillin
CPT/HCPCS: 99283

== ENCOUNTER 2021-06-28 16:09 | Emergency (ER) | payer OTHER, BC ==
--- OUTSIDE RECORDS SUMMARY | 2021-06-28 16:14 | XMS REPORT | Continuity of Care Document ---
:1945 Author Organization [facility] t Address [facility] Jamal Lott [address] [place] [address] Care Team Providers Name Role Phone Martha RICHARDSON Attending Clinician Unavailable Doctor Unassigned, Name Attending Clinician Unavailable Martha Kwon Attending Clinician Vanessa Attending Clinician Unavailable Vanessa Admitting Clinician Unavailable Payers Payer Name Policy Type Policy Number Effective Date Expiration Date S willy MEDICARE PART A [id number] 2011 \T\ B 00:00:00 [place] [id number] 2016 00:00:00 [place] [id number] 2006 [place] 00:[place] [id number] 2016 [place] ([place]ARE 00:00:00 SUPPLEMENT) Problems Condition Condition Condition Status Onset Resolution Last Treating Co mments Source Name Details Category Date Date Treatment Clinician Date Right hip Right hip Disease Active 2015-03 Uni vers pain pain 0-28 ity of 00:00: [place] 00 [facility] Allergies, Adverse Reactions, Alerts Allergy Allergy Status Severity Reaction(s) Onset Inactive Treating Comm ents Source Name Type Date Date Clinician PENICILL Drug Active Other-Cmnt 2015-03 Univ ers INS Class 0-28 ity of 00:00: [place] 00 [facility] Penicill Propensi Active Other - See 2015-03 Redness Univers ins ty to comments 0-28 at ity of adverse 00:00: injection [place] reaction 00 site Medical s Branch Social History Social Habit Start Date Stop Date Quantity Comments Source Tobacco use and 2020-09-27 2020-09-27 Never used Universit y of exposure 00:00:00 00:00:00 [facility] Alcohol intake 2020-09-27 2020-09-27 Current drinker Unive rsity of 00:00:00 00:00:00 of alcohol [facility] (finding) Branch Sex [birth year] Universit y of 00:00:00 00:00:00 [facility] Smoking Status Start Date Stop Date Source Never smoker [facility] Branch Medications Ordered Filled Start Stop Current Ordering Indication Dosage Frequency Signature Comments Components Source Medication Medication Date Date Medication? Clinician (SIG) Name Name DICLOFENAC 2018-03 Yes [id number] TAKE 1 Univers 75 mg EC 1-14 9102 TABLET BY ity of tablet 00:00: MOUTH [place] 00 TWICE Medical DAILY WITH Branch MEALS DICLOFENAC 2018-03 Yes [id number] TAKE 1 Univers 75 mg EC 1-14 9102 TABLET BY ity of tablet 00:00: MOUTH [place] 00 TWICE Medical DAILY WITH Branch MEALS DICLOFENAC 2018-03 Yes [id number] TAKE 1 Univers 75 mg EC 1-14 9102 TABLET BY ity of tablet 00:00: MOUTH [place] 00 TWICE Medical DAILY WITH Branch MEALS DICLOFENAC 2018-03 Yes [id number] TAKE 1 Univers 75 mg EC 1-14 9102 TABLET BY ity of tablet 00:00: MOUTH [place] 00 TWICE Medical DAILY WITH Branch MEALS DICLOFENAC 2018-03 Yes [id number] TAKE 1 Univers 75 mg EC 1-14 [...] ity of mg tablet 00:00: [place] 00 Medical Branch SERTraline 2015-03 Yes TK 3 TS PO U nivers (ZOLOFT) 50 0-24 QD ity of mg tablet 00:00: [place] [facility] SERTraline 2015-03 Yes TK 3 TS PO U nivers (ZOLOFT) 50 0-24 QD ity of mg tablet 00:00: [place] [facility] SERTraline 2015-03 Yes TK 3 TS PO U nivers (ZOLOFT) 50 0-24 QD ity of mg tablet 00:00: [place] [facility] SERTraline 2015-03 Yes TK 3 TS PO U nivers (ZOLOFT) 50 0-24 QD ity of mg tablet 00:00: [place] [facility] simvastatin 2015-03 Yes TK 1 T PO U nivers (ZOCOR) 40 0-22 D. ity of mg tablet 00:00: [place] [facility] simvastatin 2015-03 Yes TK 1 T PO U nivers (ZOCOR) 40 0-22 D. ity of mg tablet 00:00: [place] [facility] simvastatin 2015-03 Yes TK 1 T PO U nivers (ZOCOR) 40 0-22 D. ity of mg tablet 00:00: [place] [facility] simvastatin 2015-03 Yes TK 1 T PO U nivers (ZOCOR) 40 0-22 D. ity of mg tablet 00:00: [place] [facility] simvastatin 2015-03 Yes TK 1 T PO U nivers (ZOCOR) 40 0-22 D. ity of mg tablet 00:00: [place] [facility] traMADOL 2015-03 Yes TK 1 T PO Univ ers (ULTRAM) 50 0-12 TID PRN P ity of mg tablet 00:00: [place] [facility] traMADOL 2015-03 Yes TK 1 T PO Univ ers (ULTRAM) 50 0-12 TID PRN P ity of mg tablet 00:00: [place] [facility] traMADOL 2015-03 Yes TK 1 T PO Univ ers (ULTRAM) 50 0-12 TID PRN P ity of mg tablet 00:00: [place] [facility] traMADOL 2015-03 Yes TK 1 T PO Univ ers (ULTRAM) 50 0-12 TID PRN P ity of mg tablet 00:00: [place] [facility] traMADOL 2015-03 Yes TK 1 T PO Univ ers (ULTRAM) 50 0-12 TID PRN P ity of mg tablet 00:00: [facility] Branch sumatriptan 2015-03 Yes TK 1 T PO [...] 0-07 TID. ity of mg tablet 00:00: [facility] ALPRAZolam 2015-03 Yes TK 1 T PO Un claudia (XANAX) 0.5 0-07 TID. ity of mg tablet 00:00: [facility] ALPRAZolam 2015-03 Yes TK 1 T PO Un claudia (XANAX) 0.5 0-07 TID. ity of mg tablet 00:00: [facility] ALPRAZolam 2015-03 Yes TK 1 T PO Un claudia (XANAX) 0.5 0-07 TID. ity of mg tablet 00:00: [facility] ALPRAZolam 2015-03 Yes TK 1 T PO Un claudia (XANAX) 0.5 0-07 TID. ity of mg tablet 00:00: [facility] oxybutynin 2015-03 Yes TK 1 T PO [...] blood 2020-09-27 13:30:00 122 mm[Hg] Univer sity [facility] pressure [facility] Diastolic blood 2020-09-27 13:30:00 71 mm[Hg] Unive rsity [facility] pressure [facility] Heart rate 2020-09-27 13:30:00 62 /min [facility] Body height 2020-09-27 13:30:00 165.1 cm [facility] Body weight 2020-09-27 13:30:00 61.689 kg [facility] BMI 2020-09-27 13:30:00 22.63 kg/m2 [facility] Procedures Procedure Date / Time Performing Clinician Source Performed ASSIGNMENT OF BENEFITS 2020-11-08 14:30:12 Doctor Unassigned, No [facility] DME/SUPPLY JUSTIFICATION 2020-09-27 05:01:00 Doctor Unassigned, No [facility] Encounters Start End Encounter Admission Attending Care Care Encounter Source Date/Time Date/Time Type Type Clinicians Facility Department ID 2020-11-08 2020-11-08 [id number] 09:30:00 09:30:00 MARY [id number] ity [facility] 2020-11-08 2020-11-08 [id number] Univers 09:30:00 09:30:00 MARY ity [facility] 2020-11-08 2020-11-08 Orders Doctor JENY [id number] Univers 00:00:00 00:00:00 Only Unassigned, [place] [id number] ity of [facility] [id number] Jacek as [phone] [facility] [address] [place] 2020-11-08 2020-11-08 Letter Doctor JENY [id number] Univers 00:00:00 00:00:00 (Out) Unassigned, [place] [id number] ity of [facility] [id number] Jacek as [phone] [facility] [address] [place] 2020-09-27 2020-09-27 [facility] [id number] Univers 08:22:39 08:37:[address] [facility] [id number] it y of Surgical [id number] Jacek as Specialti [phone] [facility] 198 [facility] 2020-09-27 2020-09-27 [facility] [id number] Univers 08:30:00 08:30:00 MARY [id number] ity [facility] 2020-09-27 2020-09-27 [facility] [id number] Univers 08:30:00 08:30:00 MARY ity [facility] 2020-09-27 2020-09-27 Orders Doctor JENY [id number] Univers 00:00:00 00:00:00 Only Unassigned, [place] [id number] ity of [facility] [id number] Jacek as [phone] [facility] [address] [place] 2017-09-28 2017-09-28 Outpatient Vanessa [facility]G [facility] [id number] [place] 06:11:00 06:11:00 413 Medical [facility] Results This patient has no known results.
--- NOTE | 2021-06-28 17:49 | RAD REPORT ---
EXAM DESCRIPTION: RAD - Knee Right 3 View - 06/28/2021 5:31 pm CLINICAL HISTORY: PAIN COMPARISON: Knee Right 3 View dated 09/24/2020 FINDINGS: No fracture, dislocation or periosteal reaction.No joint effusion seen. Patella femoral wil int space narrowing is present with marginal spurring. Medial compartment marginal spurring seen with out loss in height. No foreign body or other soft tissue abnormality. 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 Findin gs are not substantially different from the 09/24/2020 study. Clinical concerns for internal derangement or occult bony injury could be further assessed with MR im aging.
--- NOTE | 2021-06-28 18:16 | EDPHYS ---
Physician Documentation [facility] Name: Aniya Goldstein Age: 75 yrs Sex: Female : 1945 Arrival Date: 06/28/2021 Time: 16:13 Bed 11 Private MD: ED Physician Javid Jerez HPI: 06/28 18:15 This 75 yrs old Female presents to ER via Ambulatory with complaints of Fall Injury, kb Knee Pain. 18:15 Details of fall: The patient fell from an upright position, while walking. Onset: The kb symptoms/episode began/occurred just prior to arrival. Associated injuries: The patient sustained right knee, painful injury. Severity of symptoms: At their worst the symptoms were moderate, in the emergency department the symptoms are unchanged. The patient has not experienced similar symptoms in the past. The patient has not recently seen a physician. Pt reports she tripped and fell landing on right knee. c/o pain to right knee only. Historical: - Allergies: 16:29 PENICILLINS; ab2 - PMHx: 16:29 Chronic back pain and hip pain; Hypertensive disorder; ab2 - Immunization history:: Adult Immunizations up to date. - Social history:: Smoking status: Patient denies any tobacco usage or history of. ROS: 18:14 Constitutional: Negative for fever, chills, and weight loss. kb 18:14 MS/extremity: Positive for pain, of the right knee. 18:14 All other systems are negative. Exam: 18:14 Constitutional: This is a well developed, well nourished patient who is awake, alert, kb and in no acute distress. Head/Face: Normocephalic, atraumatic. ENT: Moist Mucous membranes Respiratory: Respirations even and unlabored. No increased work of breathing. Talking in full sentences Skin: Warm, dry with normal turgor. Normal color. Neuro: Awake and alert, GCS 15, oriented to person, place, time, and situation. Moves all extremities. Normal gait. Psych: Awake, alert, with orientation to person, place and time. Behavior, mood, and affect are within normal limits. 18:14 Musculoskeletal/extremity: Extremities: grossly normal except: noted in the right knee: pain, tenderness, ROM: limited active range of motion due to pain, in the right knee, Circulation is intact in all extremities. Sensation intact. Weight bearing: able to fully bear weight. Vital Signs: 16:27 BP 126 / 53; Pulse 63; Resp 18; Temp 98.1; Pulse Ox 98% on R/A; Weight 63.5 kg; Height ab2 5 ft. 3 in. (160.02 cm); Pain 4/10; 16:27 Body Mass Index 24.80 (63.50 kg, 160.02 cm) ab2 MDM: 18:11 Patient medically screened. kb 18:14 Data reviewed: vital signs, nurses notes. Data interpreted: Pulse oximetry: on room air kb is 98 %. Interpretation: normal. Counseling: I had a detailed discussion with the patient and/or guardian regarding: the historical points, exam findings, and any diagnostic results supporting the discharge/admit diagnosis, radiology results, the need for outpatient follow up, a orthopedic surgeon, to return to the emergency department if symptoms worsen or persist or if there are any questions or concerns that arise at home. 06/28 16:49 Order name: Knee Right 3 View XRAY; Complete Time: 17:57 kb 06/28 18:14 Order name: Keith Wrap; Complete Time: 18:25 kb Administered Medications: No medications were administered Disposition Summary: 06/28/21 18:16 Discharge Ordered Location: Home kb Condition: Stable kb Diagnosis - Pain in right knee kb - Fall on same level from slipping, tripping and stumbling without subsequent kb striking against object Followup: kb - With: Emergency Department - When: As needed - Reason: Worsening of condition Followup: kb - With: Private Physician - When: 2 - 3 days - Reason: Recheck today's complaints, Continuance of care, Re-evaluation by your physician Discharge Instructions: - Discharge Summary Sheet kb - Acute Knee Pain, Adult, [id number] kb Forms: - Medication Reconciliation Form kb - Thank You Letter kb - Antibiotic Education kb - Prescription Opioid Use kb Signatures: Dispatcher [employer] Sandra Wahl FNP-C FNP-Ckb Bleininger, Alexis ab2
--- NOTE | 2021-06-28 18:16 | ER ---
Nurse's Notes [facility] Name: Aniya Goldstein Age: 75 yrs Sex: Female : 1945 Arrival Date: 06/28/2021 Time: 16:13 Bed 11 Private MD: Diagnosis: Pain in right knee;Fall on same level from slipping, tripping and stumbling without subsequent striking against object Presentation: 06/28 16:27 Chief complaint: Patient states: "I fell in my drive way. The cord caught my shoe and I ab2 fell on my right knee." Pt denies hitting her head, denies LOC. Pt denies use of blood thinners. Pt c/o right knee pain. Coronavirus screen: Vaccine status: Patient reports receiving the 2nd dose of the covid vaccine. Client denies travel out of the [place] in the last 14 days. At this time, the client does not indicate any symptoms associated with coronavirus-19. Ebola Screen: Patient negative for fever greater than or equal to 101.5 degrees Fahrenheit, and additional compatible Ebola Virus Disease symptoms Patient denies exposure to infectious person. Patient denies travel to an Ebola-affected area in the 21 days before illness onset. No symptoms or risks identified at this time. Initial Sepsis Screen: Does the patient meet any 2 criteria? No. Patient's initial sepsis screen is negative. Does the patient have a suspected source of infection? No. Patient's initial sepsis screen is negative. Risk Assessment: Do you want to hurt yourself or someone else? Patient reports no desire to harm self or others. Onset of symptoms is unknown. 16:27 Method Of Arrival: Ambulatory ab2 16:27 Acuity: DEJAN 4 ab2 Triage Assessment: 16:29 General: Appears in no apparent distress. uncomfortable, Behavior is calm, cooperative, ab2 appropriate for age. Pain: Complains of pain in right knee Pain currently is 4 out of 10 on a pain scale. Neuro: Level of Consciousness is awake, alert, obeys commands, Oriented to person, place, time, situation, Appropriate for age Manager Fiber are equal bilaterally Moves all extremities. Gait is steady, Speech is normal, Facial symmetry appears normal. Cardiovascular: No deficits noted. Respiratory: No deficits noted. Airway is patent Respiratory effort is even, unlabored, Respiratory pattern is regular, symmetrical. GI: No deficits noted. No signs and/or symptoms were reported involving the gastrointestinal system. Derm: Skin is intact, is healthy with good turgor, Skin is pink, warm \\T\\ dry. Musculoskeletal: Reports pain in right knee. Historical: - Allergies: 16:29 PENICILLINS; ab2 - PMHx: 16:29 Chronic back pain and hip pain; Hypertensive disorder; ab2 - Immunization history:: Adult Immunizations up to date. - Social history:: Smoking status: Patient denies any tobacco usage or history of. Screenin:25 Abuse screen: Denies threats or abuse. Denies injuries from another. Nutritional ss screening: No deficits noted. Tuberculosis screening: Never had TB. Fall Risk None identified. Assessment: 18:25 Reassessment: Patient appears in no apparent distress at this time. Patient and/or ss family updated on plan of care and expected duration. Pain level reassessed. Patient is alert, oriented x 3, equal unlabored respirations, skin warm/dry/pink. General: Appears in no apparent distress. comfortable, Behavior is calm, cooperative, Denies fever, feeling ill, fatigue, chills. Pain: Complains of pain in right knee Pain currently is 4 out of 10 on a pain scale. Neuro: Level of Consciousness is awake, alert, obeys commands, Oriented to person, place, time, situation. Respiratory: Airway is patent Respiratory effort is even, unlabored, Respiratory pattern is regular, symmetrical. EENT: Nares are clear. Derm: Skin is intact, is healthy with good turgor, Skin is dry. Vital Signs: 16:27 BP 126 / 53; Pulse 63; Resp 18; Temp 98.1; Pulse Ox 98% on R/A; Weight 63.5 kg; Height ab2 5 ft. 3 in. (160.02 cm); Pain 4/10; 16:27 Body Mass Index 24.80 (63.50 kg, 160.02 cm) ab2 ED Course: 16:13 Patient arrived in ED. mr 16:29 Triage completed. ab2 16:30 Arm band placed on right wrist. ab2 16:49 Sandra Gupta FNP-C is [facility]. kb 16:49 Javid Jerez MD is Attending Physician. kb 17:32 Knee Right 3 View XRAY In Process Unspecified. EDMS 18:19 Smirch, Trixie, RN is Primary Nurse. ss 18:25 Patient has correct armband on for positive identification. Bed in low position. ss 18:25 No provider procedures requiring assistance completed. Patient did not have IV access ss during this emergency room visit. Administered Medications: No medications were administered Outcome: 18:16 Discharge ordered by . kb 18:25 Discharged to home ambulatory. ss 18:25 Condition: good 18:25 Discharge instructions given to patient, Instructed on discharge instructions, follow up and referral plans. medication usage, Demonstrated understanding of instructions, follow-up care, medications. 18:29 Patient left the ED. ss Signatures: Dispatcher [employer] EDMA Sandra Gupta, TRAINING PROJECT MANAGER-C TRAINING PROJECT MANAGER-Natali Arriaza mr Trixie Kim, RN RN Cecil Wolf
[2021-06-28 21:13] VITALS: BP 126/53; TEMP 98.1; O2SAT 98
== END 2021-06-28 18:29 | disposition home or self-care (01) ==
LOC: ER 16:09
DX: M25.561 Pain in right knee (principal); W01.0XXA Fall on same level from slipping, tripping and stumbling without subsequent striking against object, initial encounter; Y93.01 Activity, walking, marching and hiking; I10 Essential (primary) hypertension; Z88.0 Allergy status to penicillin
CPT/HCPCS: 99283

== ENCOUNTER 2022-02-12 10:31 | Emergency (ER) | payer OTHER, BC ==
--- OUTSIDE RECORDS SUMMARY | 2022-02-12 10:36 | XMS REPORT | Continuity of Care Document ---
:1945 Author Organization [facility] t Address [address] [place] [address] Care Team Providers Name Role Phone PURA VELIZ Primary Care Physician Unavailable MARY RICHARDSON Attending Clinician Unavailable Mary Kwon Attending Clinician Doctor Unassigned, [place] Attending Clinician Unavailable Teresa Beach MD Attending Clinician TERESA BEACH Attending Clinician Unavailable Vanessa Attending Clinician Unavailable Vanessa Admitting Clinician Unavailable Payers Payer Name Policy Type Policy Number Effective Date Expiration Date S willy MEDICARE PART A \T\ [id number] 2011 B 00:00:00 BCBS TRADITIONAL [id number] 2016 00:00:00 [place] [id number] 2006 [place] 00:00:00 [place] [id number] 2016 (MEDICARE 00:00:00 SUPPLEMENT) Problems Condition Condition Condition Status Onset Resolution Last Treating Co mments Source Name Details Category Date Date Treatment Clinician Date Right hip Right hip Disease Active 2015-03 Uni vers pain pain 0-28 ity of 00:00: [place] 00 Medical Branch Allergies, Adverse Reactions, Alerts Allergy Allergy Status Severity Reaction(s) Onset Inactive Treating Comm ents Source Name Type Date Date Clinician Penicill Propensi Active Other - See 2015-03 Redness Univers ins ty to comments 0-28 at ity of adverse 00:00: injection [place] reaction 00 site Medical s Branch PENICILL Drug Active Other-Cmnt 2015-03 Univ ers INS Class 0-28 ity of 00:00: [place] 00 Medical Branch Penicill Propensi Active Other - See 2015-03 Redness Univers ins ty to comments 0-28 at ity of adverse 00:00: injection [place] reaction 00 site Medical s Branch Social History Social Habit Start Date Stop Date Quantity Comments Source Exposure to 2021-12-24 2022-01-03 Not sure [facility] SARS-CoV-2 (event) 00:00:00 08:58:00 Medica l Branch Alcohol intake 2022-01-03 2022-01-03 0 /d [facility] 00:00:00 00:00:00 Medical Branch Sex [birth year] [facility] [place] 00:00:00 00:00:00 Medical Branch Smoking Status Start Date Stop Date Source Never smoked tobacco [facility] Medications Ordered Filled Start Stop Current Ordering Indication Dosage Frequency Signature Comments Components Source Medication Medication Date Date Medication? Clinician (SIG) Name Name triamcinolo 2021- No [id number] 40mg Univers ne 10-09 [id number] ity of acetonide 23:00: 21:53 [place] (KENALOG) 00 :00 Medical injection Branch 40 mg triamcinolo 2021- No [id number] 40mg 40 mg, Univers ne 10-09 [id number] Intra-edita ity of acetonide 23:00: 21:53 Rene patterson (KENALOG) 00 :00 ONCE, 1 Medical injection dose, On Branch 40 mg Thu10/09/21 at 1800, Routine DICLOFENAC 2018-03 Yes [id number] TAKE 1 Univers 75 mg EC 1-14 9102 TABLET BY ity of tablet 00:00: MOUTH 00 TWICE Medical DAILY WITH Branch MEALS DICLOFENAC 2018-03 Yes [id number] TAKE 1 Univers 75 mg EC 1-14 9102 TABLET BY ity of tablet 00:00: MOUTH 00 TWICE Medical DAILY WITH Branch MEALS DICLOFENAC 2018-03 Yes [id number] TAKE 1 Univers 75 mg EC 1-14 9102 TABLET BY ity of tablet 00:00: MOUTH 00 TWICE Medical DAILY WITH Branch MEALS DICLOFENAC 2018-03 Yes [id number] TAKE 1 Univers 75 mg EC 1-14 9102 TABLET BY ity of tablet 00:00: MOUTH 00 TWICE Medical DAILY WITH Branch MEALS DICLOFENAC 2018-03 Yes [id number] TAKE 1 Univers 75 mg EC 1-14 [...] MOUTH TWICE Medical DAILY WITH Branch MEALS SERTraline 2015-03 Yes TK 3 TS PO U nivers (ZOLOFT) 50 0-24 QD ity of mg tablet 00:00: [place] [facility] SERTraline 2015-03 Yes TK 3 TS PO U nivers (ZOLOFT) 50 0-24 QD ity of mg tablet 00:00: [place] [facility] SERTraline 2015-03 Yes TK 3 TS PO U nivers (ZOLOFT) 50 0-24 QD ity of mg tablet 00:00: [place] [facility] SERTraline 2015-03 Yes TK 3 TS PO U nivers (ZOLOFT) 50 0-24 QD ity of mg tablet 00:00: [place] [facility] SERTraline 2015-03 Yes TK 3 TS PO U nivers (ZOLOFT) 50 0-24 QD ity of mg tablet 00:00: [place] [facility] simvastatin 2015-03 Yes TK 1 T PO U nivers (ZOCOR) 40 0-22 D. ity of mg tablet 00:00: [place] [facility] simvastatin 2015-03 Yes TK 1 T PO U nivers (ZOCOR) 40 0-22 D. ity of mg tablet 00:00: [place] [facility] simvastatin 2015-03 Yes TK 1 T PO U nivers (ZOCOR) 40 0-22 D. ity of mg tablet 00:00: [place] Medical Branch simvastatin 2015-03 Yes TK 1 T PO U nivers (ZOCOR) 40 0-22 D. ity of mg tablet 00:00: Medical Branch simvastatin 2015-03 Yes TK 1 T PO U nivers (ZOCOR) 40 0-22 D. ity of mg tablet 00:00: Medical Branch traMADOL 2015-03 Yes TK 1 T PO Univ ers (ULTRAM) 50 0-12 TID PRN P ity of mg tablet 00:00: Medical Branch traMADOL 2015-03 Yes TK 1 T PO Univ ers (ULTRAM) 50 0-12 TID PRN P ity of mg tablet 00:00: Medical Branch traMADOL 2015-03 Yes TK 1 T PO Univ ers (ULTRAM) 50 0-12 TID PRN P ity of mg tablet 00:00: Medical Branch traMADOL 2015-03 Yes TK 1 T PO Univ ers (ULTRAM) 50 0-12 TID PRN P ity of mg tablet 00:00: Medical Branch traMADOL 2015-03 Yes TK 1 T PO Univ ers (ULTRAM) 50 0-12 TID PRN P ity of mg tablet 00:00: Medical Branch sumatriptan 2015-03 Yes TK 1 T [...] 0-07 TID. ity of mg tablet 00:00: [place] [facility] ALPRAZolam 2015-03 Yes TK 1 T PO Un claudia (XANAX) 0.5 0-07 TID. ity of mg tablet 00:00: [facility] ALPRAZolam 2015-03 Yes TK 1 T PO Un claudia (XANAX) 0.5 0-07 TID. ity of mg tablet 00:00: [facility] Branch ALPRAZolam 2015-03 Yes TK 1 T PO Un claudia (XANAX) 0.5 0-07 TID. ity of mg tablet 00:00: [facility] ALPRAZolam 2015-03 Yes TK 1 T PO Un claudia (XANAX) 0.5 0-07 TID. ity of mg tablet 00:00: [facility] Branch oxybutynin 2015-03 Yes TK 1 T PO Un claudia (DITROPAN-X 0-05 QD ity of L) 10 mg 24 00:00: [place] hr tablet Medical Branch oxybutynin 2015-03 Yes TK 1 T PO Un claudia (DITROPAN-X 0-05 QD ity of L) 10 mg 24 00:00: [place] hr tablet [facility] Branch oxybutynin 2015-03 Yes TK 1 T PO Un claudia (DITROPAN-X 0-05 QD ity of L) 10 mg 24 00:00: [place] hr tablet Medical Branch oxybutynin 2015-03 Yes TK 1 T PO Un claudia (DITROPAN-X 0-05 QD ity of L) 10 mg 24 00:00: [place] hr tablet Medical Branch oxybutynin 2015-03 Yes TK 1 T PO Un claudia (DITROPAN-X 0-05 QD ity of L) 10 mg 24 00:00: [place] hr tablet Medical Branch SUMAtriptan Yes INJECT Univ ers [...] Time Observation Value Comments Source Systolic blood 2022-01-03 14:08:00 126 mm[Hg] [facility]iver [facility]ity [facility] [place] pressure Medical Branch Diastolic blood 2022-01-03 14:08:00 80 mm[Hg] [facility] [place] pressure [facility] Heart rate 2022-01-03 14:08:00 59 /min Universi ty [facility] Body height 2022-01-03 14:08:00 160 cm Universi ty [facility] Body weight 2022-01-03 14:08:00 63.277 kg Univers ty [facility] BMI 2022-01-03 14:08:00 24.71 [facility] saturation 2022-01-03 14:08:00 100 /min Uni [facility] [place] in Arterial blood Medical Br anch by Pulse oximetry Systolic blood 2021-10-09 21:12:00 114 mm[Hg] Univer [facility] pressure [facility] Branch Diastolic blood 2021-10-09 21:12:00 72 mm[facility]Hg[facility] 2021-10-09 21:12:00 67 /min Universi ty [facility] Body height 2021-10-09 21:12:00 161.3 cm [facility] Body weight 2021-10-09 21:12:00 62.596 kg Universi ty [facility] BMI 2021-10-09 21:12:00 24.06 kg/m2 [facility] Oxygen saturation 2021-10-09 21:12:00 96 /min Uni [facility] in Arterial blood Medical Br anch by Pulse oximetry Procedures Procedure Date / Time Performed Performing Clinician [facility] e ASSIGNMENT OF BENEFITS 2021-12-31 20:31:04 Doctor Unassigned, No [facility] Branch Encounters Start End Encounter Admission Attending Care Care Encounter Source Date/Time Date/Time Type Type Clinicians Facility Department ID 2022-02-18 2022-02-18 Outpatient Jean-Pierre RICHARDSON [facility] [id number] Univers 13:15[facility]00 [facility] 2022-01-03 Outpatient Jean-Pierre RICHARDSON [facility] [id number] Univers 09:00:00 09:32:27 MARY regan [facility] 2022-01-03 2022-01-03 Office Dylan OHYANIV [id number] Univers 09:00:00 09:32:27 Visit Mary [facility] [id number] it y of [place] [id number] Jacek as KATI?BLEA [phone] [place] hal PALM [address] [facility] OFFICE [facility] 2021-12-31 2021-12-31 Outpatient Jean-Pierre RICHARDSON [facility] [id number] Univers 15:30:00 15:30:00 MARY regan [facility] 2021-12-31 2021-12-31 Orders Doctor FERMIN [id number] Univers 00:00:00 00:00:00 Only Unassigned, CONNOR [id number] ity of [place] [facility] [id number] Jacek as [id number] [address] 2021-12-30 2021-12-30 [facility] [id number] Univers 00:00:00 00:00:00 Teresa [employer] [id number] it [facility] [id number] Jacek as KATI?BLEA [phone] [place] hal PALM [address] [place] [address] 2021-10-09 2021-10-09 [facility] [id number] Univers 16:15:00 17:14:53 TERESA rodriguez [facility] 2021-10-09 2021-10-09 Office [facility] [id number] Univers 16:15:00 17:14:53 Visit Teresa [facility] [id number] it y of [place] [id number] Jacek as KATI?BLEA [phone] [place] hal PALM [address] [place] [address] OFFICE [facility] 2020-11-08 2020-11-08 Outpatient Jean-Pierre RICHARDSON [facility] [id number] Univers 09:55:00 23:59:00 MARY regan [facility] 2020-11-08 2020-11-08 Orders Doctor FERMIN [id number] Univers 00:00:00 00:00:00 Only Unassigned, CONNOR [id number] ity of [place] [facility] [id number] Jacek as [id number] [facility] 009 Branch 2020-11-08 2020-11-08 Letter Doctor JENY [id number] Univers 00:00:00 00:00:00 (Out) Unassigned, CONNOR [id number] ity of [place] [facility] [id number] Jacek as [id number] [facility] 044 Branch 2020-09-27 2020-09-27 Office Dylan [facility] [id number] Univers 08:22:39 08:37:39 Visit [facility] [id number] it y of Surgical [id number] Jacek as Specialti [id number] Nj dical 198 [facility] 2020-09-27 2020-09-27 [facility] [id number] Univers 08:30:00 08:30:00 MARY ity [facility] 2020-09-27 2020-09-27 Orders Doctor JENY [id number] Univers 00:00:00 00:00:00 Only Unassigned, CONNOR [id number] ity of [place] [facility] [id number] Jacek as [id number] [facility] 009 Branch 2017-09-28 2017-09-28 Outpatient Vanessa MMG MMG [id number] [place] 06:11:00 06:11:00 413 [facility] Results This patient has no known results.
--- NOTE | 2022-02-12 12:34 | RAD REPORT ---
EXAM DESCRIPTION: RAD - Knee Left 3 View - 02/12/2022 11:22 am CLINICAL HISTORY: PAIN COMPARISON: Knee Left 3 View dated 12/28/2021; Knee Left 3 View dated 02/04/2021 FINDINGS: Mild arthritic changes involves the medial compartment. There is moderate anterior soft ti ssue swelling. No acute fracture or dislocation.
--- NOTE | 2022-02-12 12:35 | RAD REPORT ---
EXAM DESCRIPTION: RAD - Hip Left 2 View - 02/12/2022 11:22 am CLINICAL HISTORY: PAIN COMPARISON: Hip Left 2 View dated 12/28/2021 FINDINGS: Mild degenerative change affects the left hip. No acute fracture, dislocation or AVN. If pain persists or progresses, recommend followup CT imaging.
--- NOTE | 2022-02-12 12:37 | ER ---
Nurse's Notes [facility] [place] Name: Aniya Goldstein Age: 76 yrs Sex: Female : 1945 Arrival Date: 02/12/2022 Time: 10:36 Bed 11 Private MD: Diagnosis: Fall on same level from slipping, tripping and stumbling without subsequent striking against object;Pain in left hip Presentation: 02/12 10:37 Chief complaint: Patient states: Fall last night, L hip pain since. Coronavirus screen: 1 Vaccine status: Patient reports receiving the 2nd dose of the covid vaccine. Client denies travel out of the [place] in the last 14 days. At this time, the client does not indicate any symptoms associated with coronavirus-19. Ebola Screen: Patient denies travel to an Ebola-affected area in the 21 days before illness onset. Initial Sepsis Screen: Does the patient meet any 2 criteria? No. Patient's initial sepsis screen is negative. Does the patient have a suspected source of infection? Yes: Bone or joint infection. Risk Assessment: Do you want to hurt yourself or someone else? Patient reports no desire to harm self or others. Onset of symptoms was February 11, 2022. 10:37 Method Of Arrival: Ambulatory ll1 10:37 Acuity: DEJAN 3 1 12:40 Care prior to arrival: None. Mechanism of Injury: Fall. Trauma event details: Injury ll1 occurred in the [facility]. Triage Assessment: 10:41 General: Appears uncomfortable, Behavior is cooperative, appropriate for age. Pain: ll1 Complains of pain in L hip Quality of pain is described as aching. Musculoskeletal: Reports pain in L hip. Injury Description: Bruise. Trauma Activation: Not Applicable Physician: ED Physician; Name: ; Notified At: ; Arrived At: Physician: General Surgeon; Name: ; Notified At: ; Arrived At: Physician: Radiology; Name: ; Notified At: ; Arrived At: Physician: Respiratory; Name: ; Notified At: ; Arrived At: Physician: Lab; Name: ; Notified At: ; Arrived At: Historical: - Allergies: 10:40 PENICILLINS; ll1 - PMHx: 10:40 Chronic back pain and hip pain; Hypertensive disorder; ll1 - PSHx: 10:40 None; ll1 - Immunization history:: Client reports receiving the 2nd dose of the Covid vaccine. - Social history:: Smoking status: Patient denies any tobacco usage or history of. - Immunization history: Last tetanus immunization: - up to date. Screenin:40 Abuse screen: Denies threats or abuse. Nutritional screening: No deficits noted. ll1 Tuberculosis screening: No symptoms or risk factors identified. Fall Risk Fall in past 12 months (25 points). Ambulatory Aid- Crutches/Cane/Walker (15 pts). Gait- Weak (10 pts.). Total Knott Fall Scale indicates High Risk Score (45 or more points). Fall prevention measures have been instituted. Side Rails Up X 2 Placed Close to Nursing Station Frequent Obs/Assessments Occuring As available patient and family educated on Fall Prevention Program and Strategies. Primary Survey: 10:40 NO uncontrolled hemorrhage observed. A: The client is awake and alert. The airway is ll1 patent. Breathing/Chest: Spontaneous respiratory effort, equal unlabored respirations, breath sounds clear bilaterally, regular pattern, symmetrical chest rise and fall. Circulation: No external hemorrhage present. Regular and strong central pulse, skin warm/dry/normal color. Disability Pupils are equal, round, reactive to light and accommodation. Client is alert. Exposure/Environment: There is no evidence of uncontrolled external bleeding. 12:40 Reassessment Alertness and Airway: Awake and alert. The airway is patent. Breathing: ll1 Spontaneous respiratory effort, equal unlabored respirations, breath sounds clear bilaterally, regular pattern with symmetrical chest rise and fall. Circulation: No external hemorrhage noted. Regular and strong central pulse, skin warm/dry/normal color. Disability: Pupils Pupils are equal, round, reactive to light and accomodation. Assessment: 11:40 Reassessment: No changes from previously documented assessment. Patient and/or family ll1 updated on plan of care and expected duration. Pain level reassessed. given warm blanket. 12:38 Reassessment: No changes from previously documented assessment. Patient and/or family ll1 updated on plan of care and expected duration. Pain level reassessed. Patient is alert, oriented x 3, equal unlabored respirations, skin warm/dry/pink. Vital Signs: 10:37 BP 135 / 65; Pulse 60; Resp 16; Temp 98.1; Pulse Ox 100% on R/A; Weight 62.14 kg; ll1 Height 5 ft. 3 in. (160.02 cm); Pain 6/10; 10:37 Body Mass Index 24.27 (62.14 kg, 160.02 cm) ll1 [place] Coma Score: 10:41 Eye Response: spontaneous(4). Verbal Response: oriented(5). Motor Response: obeys ll1 commands(6). Total: 15. Trauma Score (Adult): 10:41 Eye Response: spontaneous(1); Verbal Response: oriented(1); Motor Response: obeys ll1 commands(2); Systolic BP: > 89 mm Hg(4); Respiratory Rate: 10 to 29 per min(4); [place] Score: 15; Trauma Score: 12 ED Course: 10:36 Patient arrived in ED. rg4 10:36 Sandra Gupta FNP-C is PHCP. kb 10:36 Martin Harris MD is Attending Physician. kb 10:40 Triage completed. ll1 10:40 Luh Garay, RN is Primary Nurse. ll1 10:40 Arm band placed on Patient placed in an exam room, on a stretcher. ll1 10:41 Patient maintains SpO2 saturation greater than 95% on room air. ll1 10:42 Patient has correct armband on for positive identification. Bed in low position. Call ll1 light in reach. Cardiac monitoring not applicable on this patient. 11:23 Hip Left 2 View XRAY In Process Unspecified. EDMS 11:23 Knee Left 3 View XRAY In Process Unspecified. EDMS 11:40 Thermoregulation: warm blanket given to patient. ll1 12:40 No provider procedures requiring assistance completed. Patient did not have IV access ll1 during this emergency room visit. Administered Medications: No medications were administered Medication: 12:40 VIS not applicable for this client. ll1 Intake: 10:41 PO: 0ml; Total: 0ml. ll1 Output: 10:41 Urine: 0ml; Total: 0ml. ll1 Outcome: 12:37 Discharge ordered by . kb 12:40 Patient left the ED. ll1 12:40 Discharged to home ambulatory. ll1 12:40 Condition: stable 12:40 Discharge instructions given to patient, Instructed on discharge instructions, follow up and referral plans. Demonstrated understanding of instructions, follow-up care. 12:40 Patient's length of stay was not longer than 2 hours. ll1 Signatures: Dispatcher [employer] Sandra Wahl, ROLLING UP MACHINE OPERATOR-C ROLLING UP MACHINE OPERATOR-[place] rg4 Luh Garay, RN RN ll1
--- NOTE | 2022-02-12 12:38 | EDPHYS ---
Physician Documentation [facility] Name: Aniya Goldstein Age: 76 yrs Sex: Female : 1945 Arrival Date: 02/12/2022 Time: 10:36 Bed 11 Private MD: ED Physician Martin Harris HPI: 02/12 13:16 This 76 yrs old Female presents to ER via Ambulatory with complaints of Fall Injury. kb 13:16 Details of fall: The patient fell from an upright position, while walking. Onset: The kb symptoms/episode began/occurred last night. Associated injuries: The patient sustained left knee, painful injury, left hip, painful injury. Severity of symptoms: At their worst the symptoms were mild, in the emergency department the symptoms are unchanged. The patient has not experienced similar symptoms in the past. The patient has not recently seen a physician. Pt reports she tripped over the dog last night and fell onto left hip. States she broke that hip about 2 months ago that did not require surgery. Came in today to make sure she didn't reinjure it.. Historical: - Allergies: 10:40 PENICILLINS; ll1 - PMHx: 10:40 Chronic back pain and hip pain; Hypertensive disorder; ll1 - PSHx: 10:40 None; ll1 - Immunization history:: Client reports receiving the 2nd dose of the Covid vaccine. - Social history:: Smoking status: Patient denies any tobacco usage or history of. - Immunization history: Last tetanus immunization: - up to date. ROS: 13:15 Constitutional: Negative for fever, chills, and weight loss. kb 13:15 MS/extremity: Positive for pain, of the left hip and left knee. 13:15 All other systems are negative. Exam: 13:15 Constitutional: This is a well developed, well nourished patient who is awake, alert, kb and in no acute distress. Head/Face: Normocephalic, atraumatic. ENT: Moist Mucous membranes Cardiovascular: Regular rate and rhythm with a normal S1 and S2. No gallops, murmurs, or rubs. No pulse deficits. Respiratory: Respirations even and unlabored. No increased work of breathing. Talking in full sentences Abdomen/GI: Soft, non-tender. No distention Skin: Warm, dry with normal turgor. Normal color. Neuro: Awake and alert, GCS 15, oriented to person, place, time, and situation. Moves all extremities. Normal gait. Psych: Awake, alert, with orientation to person, place and time. Behavior, mood, and affect are within normal limits. 13:15 Musculoskeletal/extremity: Extremities: grossly normal except: noted in the left hip: pain, tenderness, noted in the left knee: pain, ROM: intact in all extremities, Circulation is intact in all extremities. Sensation intact. Weight bearing: can bear weight with assistance only, uses crutch. Vital Signs: 10:37 BP 135 / 65; Pulse 60; Resp 16; Temp 98.1; Pulse Ox 100% on R/A; Weight 62.14 kg; ll1 Height 5 ft. 3 in. (160.02 cm); Pain 6/10; 10:37 Body Mass Index 24.27 (62.14 kg, 160.02 cm) ll1 Shilpa Coma Score: 10:41 Eye Response: spontaneous(4). Verbal Response: oriented(5). Motor Response: obeys ll1 commands(6). Total: 15. Trauma Score (Adult): 10:41 Eye Response: spontaneous(1); Verbal Response: oriented(1); Motor Response: obeys ll1 commands(2); Systolic BP: > 89 mm Hg(4); Respiratory Rate: 10 to 29 per min(4); [place] Score: 15; Trauma Score: 12 MDM: 10:36 Patient medically screened. kb 13:14 Data reviewed: vital signs, nurses notes. Data interpreted: Pulse oximetry: on room air kb is 100 %. Interpretation: normal. Counseling: I had a detailed discussion with the patient and/or guardian regarding: the historical points, exam findings, and any diagnostic results supporting the discharge/admit diagnosis, radiology results, the need for outpatient follow up, a orthopedic surgeon, to return to the emergency department if symptoms worsen or persist or if there are any questions or concerns that arise at home. 02/12 10:40 Order name: Hip Left 2 View XRAY; Complete Time: 12:36 kb 02/12 10:40 Order name: Knee Left 3 View XRAY; Complete Time: 12:35 kb Administered Medications: No medications were administered Disposition: 13:51 Co-signature as Attending Physician, Martin Harris MD I agree with the assessment and rt plan of care. Disposition Summary: 02/12/22 12:37 Discharge Ordered Location: Home kb Condition: Stable kb Diagnosis - Fall on same level from slipping, tripping and stumbling without subsequent kb striking against object - Pain in left hip kb Followup: kb - With: Emergency Department - When: As needed - Reason: Worsening of condition Followup: kb - With: Private Physician - When: 2 - 3 days - Reason: Recheck today's complaints, Continuance of care, Re-evaluation by your physician Discharge Instructions: - Discharge Summary Sheet kb - Musculoskeletal Pain kb Forms: - Medication Reconciliation Form kb - Thank You Letter kb - Antibiotic Education kb - Prescription Opioid Use kb Signatures: Dispatcher [employer] EDMS Sandra Gupta, NEFTALI-Perry LINDSAY-Luh Rehman RN RN ll1 Martin Harris MD MD rt
[2022-02-12 12:45] VITALS: BP 135/65; TEMP 98.1; O2SAT 100
== END 2022-02-12 12:40 | disposition home or self-care (01) ==
LOC: ER 10:31
DX: M25.552 Pain in left hip (principal); W01.0XXA Fall on same level from slipping, tripping and stumbling without subsequent striking against object, initial encounter; I10 Essential (primary) hypertension; G89.29 Other chronic pain; Z88.0 Allergy status to penicillin
CPT/HCPCS: 99284

== ENCOUNTER 2022-12-24 15:53 | Emergency (ER) | payer OTHER, BC ==
--- OUTSIDE RECORDS SUMMARY | 2022-12-24 15:56 | XMS REPORT | Continuity of Care Document ---
:1945 Author Organization [facility] t Address [address] [facility] [address] [place] [address] Care Team Providers Name Role Phone Chapincito Polanco Primary Care Physician Carlos Hays Attending Clinician [phone] CARLOS ANDREWS Attending Clinician Unavailable Unknown, Attending Attending Clinician Unavailable MARY RICHARDSON Attending Clinician Unavailable Mary Kwon Attending Clinician Doctor Unassigned, [place] Attending Clinician Unavailable Teresa Beach MD Attending Clinician TERESA BEACH Attending Clinician Unavailable Vanessa Attending Clinician Unavailable Vanessa Admitting Clinician Unavailable Payers Payer Name Policy Type Policy Number Effective Date Expiration Date Martha aguilera [place] [id number] 2006 [employer] 00:00:00 [place] [id number] 2016 [place] (MEDICARE 00:00:00 SUPPLEMENT) Problems Condition Condition Condition Status Onset Resolution Last Treating Co mments Source Name Details Category Date Date Treatment Clinician Date Increased Increased Disease Active Uni vers frequency frequency 2- ity of of of 00:00: [place] urination urination 00 Medi tatyana Branch 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 00 Me dical athy athy Branch Hypertensi Hypertensi Disease Active U nivers on on 05-13 ity of 00:00: [place] 00 Medical Branch Hyperlipid Hyperlipid Disease Active U nivers emia emia 2-21 ity of 00:00: [place] 00 Medical Branch Fatigue Fatigue Disease Active Univers 2-21 ity of 00:00: [place] [facility] Chronic Chronic Disease Active Univers pain pain 2-21 ity of disorder disorder 00:00: [place] 00 Medical Branch Chronic Chronic Disease Active Univers cough cough 2-21 ity of 00:00: [place] [facility] Anxiety Anxiety Disease Active Univers state state 2-21 ity of 00:00: [place] [facility] Age Age Disease Active Univers related related 2-21 ity of osteoporos osteoporos [place] 00 [place] Acute Acute Disease Active Univers bronchitis bronchitis 2-21 it y of 00:00: [place] 00 Medical Branch Vitamin Vitamin Disease Active Univers B12 B12 2-21 ity of deficiency deficiency [place] (non (non 00 Medical anemic) anemic) Branch Rest pain Rest pain Disease Active Uni vers of both of both 2-21 ity of lower lower 00:00: [place] extremitie extremitie 00 Me dical s due to s due to Branch atheroscle atheroscle rosis rosis 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 00 Medica l mellitus mellitus Branch Peripheral Peripheral Disease Active U nivers vascular vascular 2-21 ity of disorder disorder 00:00: [place] due to due to 00 Medical diabetes diabetes Branch mellitus mellitus Other Other Disease Active Univers chronic chronic 2-21 ity of diseases diseases 00:00: [place] of tonsils of tonsils 00 Me dical and and Branch adenoids adenoids Osteoarthr Osteoarthr Disease Active U nivers osis osis 2-21 ity of 00:00: [place] 00 Medical Branch Osteoarthr Osteoarthr Disease Active U nivers itis of itis of 2-21 ity of knee knee 00:00: [place] 00 Medical Branch Normal Normal Disease Active Univers body mass body mass 2-21 ity of index index 00:00: [place] (BMI) (BMI) 00 Medical Branch Migraine Migraine Disease Active Unive rs 2-21 ity of 00:00: [place] [facility] 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 2-21 it y of disorder, disorder, 00:[place] single single 00 Medical episode, episode, Branch unspecifie unspecifie d d 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 2-21 ity of 00:00: [place] [facility] Lumbosacra Lumbosacra Disease Active U nivers l l 2-21 ity of spondylosi spondylosi [place] without s without 00 Medi tatyana myelopathy myelopathy Br anch Low back Low back Disease Active Unive rs pain pain 2-21 ity of 00:00: [place] [facility] Right hip Right hip Disease Active 2015-03 Uni vers pain pain 0-28 ity of 00:00: [place] [facility] Allergies, Adverse Reactions, Alerts Allergy Allergy Status Severity Reaction(s) Onset Inactive Treating Comm ents Source Name Type Date Date Clinician Adrian Hodgeensi Active Other - See 2015-03 Redness Univers [...] Stop Date Quantity Comments Source Exposure to 2022-05-03 2022-05-13 Not sure [facility] SARS-CoV-2 (event) 00:00:00 15:25:00 Medica l Branch Alcohol intake 2022-05-13 2022-05-13 0 /d [facility] 00:00:00 00:00:00 Medical Branch [facility] At [birth year] [facility] [place] [facility]:00 Medical Branch Smoking Status Start Date Stop Date Source Never smoked tobacco [facility] Medications Ordered Filled Start Stop Current Ordering Indication Dosage Frequency Signature Comments Components Source Medication Medication Date Date Medication? Clinician (SIG) Name Name levothyroxi 2022-0 Yes levothyrox Univers ne 25 mcg 2-21 ine 25 mcg ity of tablet 16:18: tablet [place] Take 1 Medical tablet Branch every day by oral route. levothyroxi 2022-0 Yes levothyrox Univers ne 25 mcg 2-21 ine 25 mcg ity of tablet 16:18: tablet [place] Take 1 Medical tablet Branch every day by oral route. levothyroxi 2022-0 Yes levothyrox Univers ne 25 mcg 2-21 ine 25 mcg ity of tablet 16:18: tablet [place] Take 1 Medical tablet Branch every day by oral route. levothyroxi 2022-0 Yes levothyrox Univers ne 25 mcg 2-21 ine 25 mcg ity of tablet 16:18: tablet [place] Take 1 Medical tablet Branch every day by oral route. tiZANidine 2022-0 Yes TAKE 1 Unive rs 2 mg tablet 2-02 TABLET BY ity of 00:00: MOUTH [place] 00 TWICE Medical DAILY Branch NEEDED tiZANidine 2022-0 Yes TAKE 1 Unive rs 2 mg tablet 2-02 TABLET BY ity of 00:00: MOUTH [place] 00 TWICE Medical DAILY Branch NEEDED tiZANidine 3-0 Yes TAKE 1 Unive rs 2 mg tablet 2-02 TABLET BY ity of 00:00: MOUTH [place] 00 TWICE Medical DAILY Branch NEEDED tiZANidine 3-0 Yes TAKE 1 Unive rs 2 mg tablet 2-02 TABLET BY ity of 00:00: MOUTH [place] 00 TWICE Medical DAILY Branch NEEDED amLODIPine 2022-0 Yes 5mg Take 5 mg Un claudia 5 mg tablet 1-16 by mouth ity of 00:00: in the [place] morning. Medical Branch amLODIPine 3-0 Yes 5mg Take 5 mg Un claudia 5 mg tablet 1-16 by mouth ity of 00:00: in the [place] morning. Medical Branch amLODIPine 3-0 Yes 5mg Take 5 mg Un claudia 5 mg tablet 1-16 by mouth ity of 00:00: in the [place] morning. Medical Branch amLODIPine 3-0 Yes 5mg Take 5 mg Un claudia 5 mg tablet 1-16 by mouth ity of 00:00: in the [place] morning. Medical Branch alendronate 2022-1 Yes TAKE 1 Univ ers 70 mg 2-21 TABLET BY ity of tablet 00:00: MOUTH [place] 00 EVERY WEEK Medical 30 MINUTES Branch BEFORE FIRST FOOD OR BEVERAGE OR MEDICINE OF THE DAY WITH WATER alendronate 2021-03 Yes TAKE 1 Univ ers 70 mg 2-21 TABLET BY ity of tablet 00:00: MOUTH [place] 00 EVERY WEEK Medical 30 MINUTES Branch BEFORE FIRST FOOD OR BEVERAGE OR MEDICINE OF THE DAY WITH WATER alendronate 2021-03 Yes TAKE 1 Univ ers 70 mg 2-21 TABLET BY ity of tablet 00:00: MOUTH [place] 00 EVERY WEEK Medical 30 MINUTES Branch BEFORE FIRST FOOD OR BEVERAGE OR MEDICINE OF THE DAY WITH WATER alendronate 2021-03 Yes TAKE 1 Univ ers 70 mg 2-21 TABLET BY ity of tablet 00:00: MOUTH [place] 00 EVERY WEEK Medical 30 MINUTES Branch BEFORE FIRST FOOD OR BEVERAGE OR MEDICINE OF THE DAY WITH WATER triamcinolo 2021- No [id number] 40mg Univers ne 10-09 [id number] ity of acetonide 23:00: 21:53 [place] (KENALOG) 00 :00 Medical injection Branch 40 mg triamcinolo 2021- No [id number] 40mg 40 mg, Univers ne 10-09 [id number] Intra-edita ity of acetonide 23:00: 21:53 leonardo [place] (KENALOG) 00 :00 ONCE, 1 Medical injection dose, On Branch 40 mg 10/09/21 at 1800, Routine DICLOFENAC 2018-03 Yes [id number] TAKE 1 Univers 75 mg EC 1-14 9102 TABLET BY ity of tablet 00:00: MOUTH [place] 00 TWICE Medical DAILY WITH Branch MEALS DICLOFENAC 2018-03 Yes [id number] TAKE 1 Univers 75 mg EC 1-14 9102 TABLET BY ity of tablet 00:00: MOUTH [place] 00 TWICE Medical DAILY WITH Branch MEALS DICLOFENAC 2018-03 Yes [id number] TAKE 1 Univers 75 mg EC 1-14 9102 TABLET BY ity of tablet 00:00: MOUTH [place] 00 TWICE Medical DAILY WITH Branch MEALS DICLOFENAC 2018-03 Yes [id number] TAKE 1 Univers 75 mg EC 1-14 9102 TABLET BY ity of tablet 00:00: MOUTH [place] 00 TWICE Medical DAILY WITH Branch MEALS DICLOFENAC 2018-03 Yes [id number] TAKE 1 Univers 75 mg EC 1-14 9102 TABLET BY ity of tablet 00:00: MOUTH [place] 00 TWICE Medical DAILY WITH Branch MEALS DICLOFENAC 2019- Yes [id number] TAKE 1 Univers 75 mg EC 1-14 9102 TABLET BY ity of tablet 00:00: MOUTH TWICE Medical DAILY WITH Branch MEALS DICLOFENAC 2018- Yes [id number] TAKE 1 Univers 75 mg EC 1-14 9102 TABLET BY ity of tablet 00:00: MOUTH 00 TWICE Medical DAILY WITH Branch MEALS DICLOFENAC 2018- Yes [id number] TAKE 1 Univers 75 mg EC 1-14 9102 TABLET BY ity of tablet 00:00: MOUTH 00 TWICE Medical DAILY WITH Branch MEALS DICLOFENAC 2018-03 Yes [id number] TAKE 1 Univers 75 mg EC 1-14 9102 TABLET BY ity of tablet 00:00: MOUTH TWICE Medical DAILY WITH Branch MEALS DICLOFENAC 2018-03 Yes [id number] TAKE 1 Univers 75 mg EC 1-14 9102 TABLET BY ity of tablet 00:00: MOUTH TWICE Medical DAILY WITH Branch MEALS DICLOFENAC 2018-03 Yes [id number] TAKE 1 Univers 75 mg EC 1-14 [...] 0-24 QD ity of mg tablet 00:00: [place] [facility] SERTraline 2015-03 Yes TK 3 TS PO U nivers (ZOLOFT) 50 0-24 QD ity of mg tablet 00:00: [place] [facility] SERTraline 2015-03 Yes TK 3 TS PO U nivers (ZOLOFT) 50 0-24 QD ity of mg tablet 00:00: [place] [facility] SERTraline 2015-03 Yes TK 3 TS PO U nivers (ZOLOFT) 50 0-24 QD ity of mg tablet 00:00: [place] [facility] SERTraline 2015-03 Yes TK 3 TS PO U nivers (ZOLOFT) 50 0-24 QD ity of mg tablet 00:00: [place] [facility] SERTraline 2015-03 Yes TK 3 TS PO U nivers (ZOLOFT) 50 0-24 QD ity of mg tablet 00:00: [place] [facility] SERTraline 2015-03 Yes TK 3 TS PO U nivers (ZOLOFT) 50 0-24 QD ity of mg tablet 00:00: [place] [facility] SERTraline 2015-03 Yes TK 3 TS PO U nivers (ZOLOFT) 50 0-24 QD ity of mg tablet 00:00: [place] [facility] SERTraline 2015-03 Yes TK 3 TS PO U nivers (ZOLOFT) 50 0-24 QD ity of mg tablet 00:00: [place] [facility] SERTraline 2015-03 Yes TK 3 TS PO U nivers (ZOLOFT) 50 0-24 QD ity of mg tablet 00:00: [place] [facility] SERTraline 2016 Yes TK 3 TS PO U nivers (ZOLOFT) 50 0-24 QD ity of mg tablet 00:00: [place] [facility] simvastatin 2015-03 Yes TK 1 T PO U nivers (ZOCOR) 40 0-22 D. ity of mg tablet 00:00: [place] [facility] simvastatin 2015-03 Yes TK 1 T PO U nivers (ZOCOR) 40 0-22 D. ity of mg tablet 00:00: [facility] simvastatin 2015-03 Yes TK 1 T PO U nivers (ZOCOR) 40 0-22 D. ity of mg tablet 00:00: [place] [facility] simvastatin 2015-03 Yes TK 1 T PO U nivers (ZOCOR) 40 0-22 D. ity of mg tablet 00:00: [place] [facility] simvastatin 2015-03 Yes TK 1 T PO U nivers (ZOCOR) 40 0-22 D. ity of mg tablet 00:00: [place] [facility] simvastatin 2015-03 Yes TK 1 T PO U nivers (ZOCOR) 40 0-22 D. ity of mg tablet 00:00: [place] [facility] simvastatin 2015-03 Yes TK 1 T PO U nivers (ZOCOR) 40 0-22 D. ity of mg tablet 00:00: [place] [facility] simvastatin 2015-03 Yes TK 1 T PO U nivers (ZOCOR) 40 0-22 D. ity of mg tablet 00:00: [place] [facility] simvastatin 2015-03 Yes TK 1 T PO U nivers (ZOCOR) 40 0-22 D. ity of mg tablet 00:00: [place] [facility] simvastatin 2015-03 Yes TK 1 T PO U nivers (ZOCOR) 40 0-22 D. ity of mg tablet 00:00: [place] [facility] simvastatin 2015-03 Yes TK 1 T PO U nivers (ZOCOR) 40 0-22 D. ity of mg tablet 00:00: [place] [facility] traMADOL 2015-03 Yes TK 1 T PO Univ ers (ULTRAM) 50 0-12 TID PRN P ity of mg tablet 00:00: [place] [facility] traMADOL 2015-03 Yes TK 1 T PO Univ ers (ULTRAM) 50 0-12 TID PRN P ity of mg tablet 00:00: [place] [facility] traMADOL 2015-03 Yes TK 1 T PO Univ ers (ULTRAM) 50 0-12 TID PRN P ity of mg tablet 00:00: [place] [facility] traMADOL 2015-03 Yes TK 1 T PO Univ ers (ULTRAM) 50 0-12 TID PRN P ity of mg tablet 00:00: [place] [facility] traMADOL 2015-03 Yes TK 1 T PO Univ ers (ULTRAM) 50 0-12 TID PRN P ity of mg tablet 00:00: [place] [facility] traMADOL 2015-03 Yes TK 1 T PO Univ ers (ULTRAM) 50 0-12 TID PRN P ity of mg tablet 00:00: [place] [facility] traMADOL 2015-03 Yes TK 1 T PO Univ ers (ULTRAM) 50 0-12 TID PRN P ity of mg tablet 00:00: [place] [facility] Branch traMADOL 2015-03 Yes TK 1 T PO Univ ers (ULTRAM) 50 0-12 TID PRN P ity of mg tablet 00:00: [place] [facility] traMADOL 2015-03 Yes TK 1 T PO Univ ers (ULTRAM) 50 0-12 TID PRN P ity of mg tablet 00:00: [place] [facility] traMADOL 2015-03 Yes TK 1 T PO Univ ers (ULTRAM) 50 0-12 TID PRN P ity of mg tablet 00:00: [place] [facility] traMADOL 2015-03 Yes TK 1 T PO Univ ers (ULTRAM) 50 0-12 TID PRN P ity of mg tablet 00:00: [place] [facility] sumatriptan 2015-03 Yes TK 1 [...] TID. ity of mg tablet 00:00: [place] 00 Medical Branch ALPRAZolam 2015-03 Yes TK 1 T PO Un claudia (XANAX) 0.5 0-07 TID. ity of mg tablet 00:00: [place] [facility] ALPRAZolam 2015-03 Yes TK 1 T PO Un claudia (XANAX) 0.5 0-07 TID. ity of mg tablet 00:00: [facility] ALPRAZolam 2015-03 Yes TK 1 T PO Un claudia (XANAX) 0.5 0-07 TID. ity of mg tablet 00:00: [facility] ALPRAZolam 2015-03 Yes TK 1 T PO Un claudia (XANAX) 0.5 0-07 TID. ity of mg tablet 00:00: [facility] ALPRAZolam 2015-03 Yes TK 1 T PO Un claudia (XANAX) 0.5 0-07 TID. ity of mg tablet 00:00: [facility] ALPRAZolam 2015-03 Yes TK 1 T PO Un claudia (XANAX) 0.5 0-07 TID. ity of mg tablet 00:00: [facility] ALPRAZolam 2015-03 Yes TK 1 T PO Un claudia (XANAX) 0.5 0-07 TID. ity [facility] mg tablet [facility] T PO Un claudia (XANAX) 0.5 0-07 TID. ity of mg tablet 00:00: [facility] ALPRAZolam 2015-03 Yes TK 1 T PO Un claudia (XANAX) 0.5 0-07 TID. ity of mg tablet 00:[facility]: [facility] Yes TK 1 T PO Un claudia (XANAX) 0.5 0-07 TID. ity of mg tablet 00:00: [facility] oxybutynin 2015-03 Yes TK 1 T PO Un claudia (DITROPAN-X 0-05 QD ity of L) 10 mg 24 00:00: [place] hr tablet [facility] oxybutynin 2015-03 Yes TK 1 T PO Un claudia (DITROPAN-X 0-05 QD ity of L) 10 mg 24 00:00: [place] hr tablet [facility] oxybutynin 2015-03 Yes TK 1 T PO Un claudia (DITROPAN-X 0-05 QD ity of L) 10 mg 24 00:00: [place] hr tablet [facility] oxybutynin 2015-03 Yes TK 1 T PO [...] Time Observation Value Comments Source Systolic blood 2022-05-13 22:01:00 117 mm[Hg] Univer sity of pressure [place] [facility] Diastolic blood 2022-05-13 22:01:00 62 mm[Hg] Unive rsity of pressure [place] [facility] Heart rate 2022-05-13 22:01:00 73 /min Universi ty of [place] [facility] Body temperature 2022-05-13 22:01:00 36.28 Lupe Univ ersity of [place] [facility] Respiratory rate 2022-05-13 22:01:00 18 /min Univ ersity of [place] [facility] Body height 2022-05-13 22:01:00 160 cm Universi ty of [place] [facility] Body weight 2022-05-13 22:01:00 61.644 kg Universi ty of [place] [facility] BMI 2022-05-13 22:01:00 24.07 kg/m2 Universi ty of [place] [facility] Oxygen saturation in 2022-05-13 22:01:00 98 /min University of Arterial blood by [facility] [place] tatyana Pulse oximetry Branch Systolic blood 2022-02-18 20:04:00 135 mm[Hg] Univer sity of pressure [place] [facility] Diastolic blood 2022-02-18 20:04:00 84 mm[Hg] Unive rsity of pressure [place] [facility] Heart rate 2022-02-18 20:04:00 65 /min Universi ty of [place] [facility] Body weight 2022-02-18 20:04:00 63.05 kg Universi ty of [place] [facility] BMI 2022-02-18 20:04:00 24.62 kg/m2 Universi ty of [place] [facility] Oxygen saturation in 2022-02-18 20:04:00 100 /min University of Arterial blood by [facility] [place] tatyana Pulse oximetry Branch Systolic blood 2022-01-03 14:08:00 126 mm[Hg] Univer sity of pressure [place] [facility] Diastolic blood 2022-01-03 14:08:00 80 mm[Hg] Unive rsity of pressure [place] [facility] Heart rate 2022-01-03 14:08:00 59 /min Universi ty of [place] [facility] Body height 2022-01-03 14:08:00 160 cm Universi ty of [place] [facility] Body weight 2022-01-03 14:08:00 63.277 kg Universi ty of [place] [facility] BMI 2022-01-03 14:08:00 24.71 kg/m2 Universi ty [facility] Oxygen saturation in 2022-01-03 14:08:00 100 /min University of Arterial blood by [facility] Pulse oximetry Branch Systolic blood 2021-10-09 21:12:00 114 mm[Hg] Univer sity of pressure [facility] Diastolic blood 2021-10-09 21:12:00 72 mm[Hg] Unive rsity of pressure [facility] Heart rate 2021-10-09 21:12:00 67 /min Universi ty [facility] Body height 2021-10-09 21:12:[address] [facility] Body weight 2021-10-09 21:12:[address] [facility] BMI 2021-10-09 21:12:00 24.06 kg/m2 Universi [facility] Oxygen saturation in 2021-10-09 21:12:00 96 /min University of Arterial blood by [facility] Pulse oximetry [place] Procedures Procedure Date / Time Performed Performing Clinician Sourc e XR HIPS 2 VW LEFT 2022-05-13 22:46:00 Carlos Andrews [facility] ersity [facility] XR HAND 3+ VW LEFT 2022-05-13 22:46:00 Carlos Andrews [facility] VW BILATERAL 2022-05-13 22:46:00 Carlos Andrews [facility] ASSIGNMENT OF BENEFITS 2021-12-31 20:31:04 Doctor Unassigned, No [facility] Encounters Start End Encounter Admission Attending Care Care Encounter Source Date/Time Date/Time Type Type Clinicians Facility Department ID 2022-05-13 2022-05-13 [facility] Anselmo SDYANIV [id number] Univers 16:22:07 23:59:00 Encounter Carlos Cartwright [facility] [id number] regan [facility] [id number] Jacek as KATI?BLEA [id number] [place] [id number] [place] MEDICAL OFFICE BUILDING 2022-05-13 2022-05-13 Outpatient R ANSELMO [facility] [id number] Univers 16:00:00 17:54:[address] [facility] 2022-05-13 2022-05-13 Urgent Carlos Andrews [facility] [id number]. [id number] Univers 16:00:00 17:54:11 Care Unknown, Attending HEALTH [id number] ity of [place] [id number] Jacek as KATI?BLEA [phone] Al hal PALM [address] [place] MEDICAL OFFICE [facility] 2022-05-13 2022-05-13 [facility] [id number] Univers 16:21:20 16:21:20 Encounter Carlos Cartwright HEALTH [id number] ity of [place] [id number] Jacek as KATI?BLEA [id number] Al hal PALM [address] [facility] OFFICE [facility] 2022-05-13 2022-05-13 [facility] [id number] Univers 16:19:49 16:20:00 Encounter Carlos Cartwright [facility] [id number] ity of [place] [id number] Jacek as KATI?BLEA [id number] [facility] LEO [address] [facility] OFFICE [facility] 2022-02-18 2022-02-18 [facility] [id number] Univers 14:10:00 23:59:00 [facility] 2022-02-18 2022-02-18 [facility] [id number] Univers 13:15:00 15:43:48 Visit [facility] [id number] it y of [place] [id number] Jacek as KATI?BLEA [id number] [facility] [address] [facility] OFFICE [facility] 2022-01-03 2022-01-03 [facility] [id number] Univers 09:00:00 09:32:27 [facility] 2022-01-03 2022-01-03 [facility] [id number] Univers 09:00:00 09:32:27 Visit Mary [facility] [id number] it y of [place] [id number] Jacek as KATI?BLEA [id number] Al hal PALM [address] [place] [address] MEDICAL OFFICE [facility] 2021-12-31 2021-12-31 Outpatient Jean-Pierre RICHARDSON [facility] [id number] Univers 15:30:00 15:30:[address] [facility] 2021-12-31 2021-12-31 Orders Doctor JENY [id number] Univers 00:00:00 00:00:00 Only Unassigned, CONNOR [id number] ity of [place] [facility] [id number] Jacek as [id number] [address] 2021-12-30 2021-12-30 [facility] [id number] Univers 00:00:00 00:00:00 Teresa Yi [facility] [id number] it y of [place] [id number] Jacek as KATI?BLEA [id number] Al hal LEO [address] [place] [address] OFFICE [facility] 2021-10-09 2021-10-09 [facility]patient [facility] [id number] Univers 16:15:00 17:14:[address] [facility] 2021-10-09 2021-10-09 Office [facility] [id number] Univers 16:15:00 17:14:53 Visit Teresa Yi [facility] [id number] it y of [place] [id number] Jacek as KATI?BLEA [id number] Al hal [address] OFFICE [facility] 2020-11-08 2020-11-08 Outpatient Jean-Pierre [facility] [id number] Univers 09:55:00 23:59:00 MARY [facility] 2020-11-08 2020-11-08 Orders Doctor FERMIN [id number] Univers 00:00:00 00:00:00 Only Unassigned, CONNOR [id number] ity of [place] [facility] [id number] Jacek as [id number] [facility] [address] [place] 2020-11-08 2020-11-08 Letter Doctor JENY [id number] Univers 00:00:00 00:00:00 (Out) Unassigned, CONNOR [id number] ity of [place] [facility] [id number] Jacek as [id number] [facility] 0[address] [place] 2020-09-27 2020-09-27 Office Dylan [facility] [id number] Univers 08:22:39 08:37:39 Visit [facility] [id number] it y of Surgical [id number] Jacek as Specialti [id number] Al dical 198 [facility] 2020-09-27 2020-09-27 [facility] [id number] Univers 08:30:00 08:30:[address] [facility] 2020-09-27 2020-09-27 Orders Doctor JENY [id number] Univers 00:00:00 00:00:00 Only Unassigned, CONNOR [id number] ity of [place] [facility] [id number] Jacek as [phone] [facility] [address] [place] 2017-09-28 2017-09-28 Outpatient Vanessa [facility]G [facility] [id number] [address] [place] 06:11:00 06:11:00 [facility] Results This patient has no known results.
--- NOTE | 2022-12-24 17:16 | RAD REPORT ---
EXAM DESCRIPTION: RAD - Knee Right 3 View - 12/24/2022 4:57 pm CLINICAL HISTORY: Right knee pain status post injury FINDINGS: No acute fracture or dislocation seen. Several posterior loose bodies unchanged from 2021
--- NOTE | 2022-12-24 17:37 | ER ---
Nurse's Notes [facility] Name: Aniya Goldstein Age: 77 yrs Sex: Female : 1945 Arrival Date: 12/24/2022 Time: 15:53 Bed 11 Private MD: Diagnosis: Fall on same level from slipping, tripping and stumbling without subsequent striking against object;Pain in right knee Presentation: 12/24 16:06 Chief complaint: Patient states: "I was chasing after my grandchild today and tripped, mb9 fell, and hit my right knee. It hurts when I bend or lift it." Pt denies LOC and does not take blood thinners. Coronavirus screen: Vaccine status: Patient reports receiving the 2nd dose of the covid vaccine. Ebola Screen: No symptoms or risks identified at this time. Initial Sepsis Screen: Does the patient meet any 2 criteria? No. Patient's initial sepsis screen is negative. Does the patient have a suspected source of infection? No. Patient's initial sepsis screen is negative. Risk Assessment: Do you want to hurt yourself or someone else? Patient reports no desire to harm self or others. Onset of symptoms was December 24, 2022. 16:06 Method Of Arrival: Ambulatory mb9 16:06 Acuity: DEJAN 4 mb9 Triage Assessment: 16:08 General: Appears in no apparent distress. Behavior is calm, cooperative. Pain: mb9 Complains of pain in right patella Pain does not radiate. Pain currently is 2 out of 10 on a pain scale. Quality of pain is described as throbbing, Pain began suddenly, Is intermittent, Aggravated by increased activity, repositioning, weight bearing. Neuro: Calderon Agitation-Sedation Scale (RASS): 0 - Alert and Calm Level of Consciousness is awake, alert, obeys commands, Oriented to person, place, time, situation, Appropriate for age. Cardiovascular: Patient's skin is warm and dry. Respiratory: Airway is patent Respiratory effort is even, unlabored, Respiratory pattern is regular, symmetrical, Breath sounds are clear bilaterally. GI: Abdomen is flat, non-distended, Bowel sounds present X 4 quads. : No signs and/or symptoms were reported regarding the genitourinary system. Derm: Skin is pink, warm \\T\\ dry. Musculoskeletal: Range of motion: intact in all extremities. Injury Description: Bruise sustained to left hand is purple. Historical: - Allergies: 16:07 PENICILLINS; mb9 - Home Meds: 16:07 sertraline Oral [Active]; Wellbutrin Oral [Active]; mb9 - PMHx: 16:07 Chronic back pain and hip pain; Hypertensive disorder; Anxiety; Depressive disorder; mb9 - PSHx: 16:07 Appendectomy; Total abdominal hysterectomy; mb9 - Immunization history:: Adult Immunizations up to date. - Social history:: Smoking status: Patient denies any tobacco usage or history of. Screenin:10 [facility] ED Fall Risk Assessment (Adult) History of falling in the last 3 months, mb9 including since admission No falls in past 3 months (0 pts) Confusion or Disorientation No (0 pts) Intoxicated or Sedated No (0 pts) Impaired Gait No (0 pts) Mobility Assist Device Used No (0 pt) Altered Elimination No (0 pt) Score/Fall Risk Level 0 - 2 = Low Risk Oriented to surroundings, Maintained a safe environment, Educated pt \\T\\ family on fall prevention, incl call for assistance when getting out of bed. Abuse screen: Denies threats or abuse. Nutritional screening: No deficits noted. Tuberculosis screening: No symptoms or risk factors identified. Assessment: 16:10 Reassessment: see triage assessment. mb9 17:16 Reassessment: No changes from previously documented assessment. Patient and/or family mb9 updated on plan of care and expected duration. Pain level reassessed. Patient is alert, oriented x 3, equal unlabored respirations, skin warm/dry/pink. Vital Signs: 16:06 BP 126 / 67; Pulse 66; Resp 16; Temp 98; Pulse Ox 100% on R/A; Weight 59.87 kg; Height mb9 5 ft. 4 in. ; Pain 2/10; 17:19 BP 122 / 64; Pulse 65; Resp 17; Pulse Ox 99% on R/A; mb9 16:06 Body Mass Index 22.66 (59.87 kg, 162.56 cm) mb9 16:06 Pain Scale: Adult mb9 ED Course: 15:56 Patient arrived in ED. im 15:56 [facility]C [facility] kb 15:56 Jam Dumont DO is Attending Physician. kb 16:06 Natali Kern, RN is Primary Nurse. mb9 16:06 Arm band placed on. mb9 16:07 Triage completed. mb9 16:10 Placed in gown. Bed in low position. Call light in reach. Side rails up X 1. Client mb9 placed on continuous cardiac and pulse oximetry monitoring. NIBP monitoring applied. Door closed. Noise minimized. Warm blanket given. 16:10 No provider procedures requiring assistance completed. mb9 16:59 Knee Right 3 View XRAY In Process Unspecified. EDMS 17:48 Patient did not have IV access during this emergency room visit. mb9 Administered Medications: No medications were administered Medication: 16:10 VIS not applicable for this client. mb9 Outcome: 17:36 Discharge ordered by . keenan 17:48 Discharged to home ambulatory, mb9 17:48 Condition: stable 17:48 Discharge instructions given to patient, Instructed on discharge instructions, follow up and referral plans. Demonstrated understanding of instructions, follow-up care, 17:49 Patient left the ED. mb9 Signatures: Dispatcher [employer] EDNM Sandra Gupta, WEB UI DEVELOPER-C WEB UI DEVELOPER-Natali Owens, RN RN mb9 Sayra Miller
--- NOTE | 2022-12-24 17:37 | EDPHYS ---
Physician Documentation [facility] Name: Aniya Goldstein Age: 77 yrs Sex: Female : 1945 Arrival Date: 12/24/2022 Time: 15:53 Bed 11 Private MD: ED Physician Jam Dumont HPI: 12/24 16:29 This 77 yrs old Female presents to ER via Ambulatory with complaints of Knee Injury - kb right. 16:30 The patient presents with pain, that is acute. The complaints affect the right knee. kb Context: The problem was sustained at home, resulted from the patient falling, the patient can fully bear weight, the patient is able to ambulate. Onset: The symptoms/episode began/occurred today. Modifying factors: The symptoms are alleviated by nothing. the symptoms are aggravated by nothing. Associated signs and symptoms: The patient has no apparent associated signs or symptoms. Treatment prior to arrival includes: no previous treatment. Severity of symptoms: At their worst the symptoms were mild, moderate, in the emergency department the symptoms are unchanged. The patient has not experienced similar symptoms in the past. The patient has not recently seen a physician. Historical: - Allergies: 16:07 PENICILLINS; mb9 - Home Meds: 16:07 sertraline Oral [Active]; Wellbutrin Oral [Active]; mb9 - PMHx: 16:07 Chronic back pain and hip pain; Hypertensive disorder; Anxiety; Depressive disorder; mb9 - PSHx: 16:07 Appendectomy; Total abdominal hysterectomy; mb9 - Immunization history:: Adult Immunizations up to date. - Social history:: Smoking status: Patient denies any tobacco usage or history of. ROS: 16:28 Constitutional: Negative for fever, chills, and weight loss, kb 16:28 MS/extremity: Positive for pain, of the right knee, 16:28 All other systems are negative, Exam: 16:28 Constitutional: This is a well developed, well nourished patient who is awake, alert, kb and in no acute distress. Head/Face: Normocephalic, atraumatic. ENT: Moist Mucous membranes Cardiovascular: Regular rate Respiratory: Respirations even and unlabored. No increased work of breathing. Talking in full sentences Neuro: Awake and alert, GCS 15, oriented to person, place, time, and situation. Moves all extremities. Normal gait. 16:28 Musculoskeletal/extremity: Extremities: grossly normal except: noted in the right knee: pain, ROM: intact in all extremities, Circulation is intact in all extremities. Sensation intact. Weight bearing: able to fully bear weight, 16:28 Skin: injury, contusion(s), that are superficial, of the heel of left hand, Vital Signs: 16:06 BP 126 / 67; Pulse 66; Resp 16; Temp 98; Pulse Ox 100% on R/A; Weight 59.87 kg; Height mb9 5 ft. 4 in. ; Pain 2/10; 17:19 BP 122 / 64; Pulse 65; Resp 17; Pulse Ox 99% on R/A; mb9 16:06 Body Mass Index 22.66 (59.87 kg, 162.56 cm) mb9 16:06 Pain Scale: Adult mb9 MDM: 15:56 Patient medically screened. kb 16:29 Differential diagnosis: contusion, fracture, sprain. Data reviewed: vital signs, nurses kb notes. I considered the following discharge prescriptions or medication management in the emergency department I discussed and recommended Over The Counter medications. Counseling: I had a detailed discussion with the patient and/or guardian regarding the historical points, exam findings, and any diagnostic results supporting the discharge/admit diagnosis, radiology results, the need for outpatient follow up, a orthopedic surgeon, to return to the emergency department if symptoms worsen or persist or if there are any questions or concerns that arise at home. 12/24 16:04 Order name: Knee Right 3 View XRAY; Complete Time: 17:25 kb Administered Medications: No medications were administered Disposition: 16:42 I was immediately available on-site in the Emergency Department for consultation in the ms3 care of the patient. Disposition Summary: 12/24/22 17:36 Discharge Ordered Notes: Location: Home kb Condition: Stable kb Diagnosis - Fall on same level from slipping, tripping and stumbling without subsequent kb striking against object - Pain in right knee kb Followup: kb - With: Emergency Department - When: As needed - Reason: Worsening of condition Followup: kb - With: Private Physician - When: 2 - 3 days - Reason: Recheck today's complaints, Continuance of care, Re-evaluation by your physician Discharge Instructions: - Discharge Summary Sheet kb - Musculoskeletal Pain kb Forms: - Medication Reconciliation Form kb - Thank You Letter kb - Antibiotic Education kb - Prescription Opioid Use kb - Patient Portal Instructions kb - Leadership Thank You Letter kb Signatures: Dispatcher [employer] Sandra Wahl, NEFTALI-C NEFTALI-Jam Holcomb, DO ms3 Natali Kern, RN RN mb9
[2022-12-24 17:58] VITALS: TEMP 98
[2022-12-24 17:59] VITALS: BP 122/64; O2SAT 99
== END 2022-12-24 17:49 | disposition home or self-care (01) ==
LOC: ER 15:53
DX: M25.561 Pain in right knee (principal); W01.0XXA Fall on same level from slipping, tripping and stumbling without subsequent striking against object, initial encounter; Z88.0 Allergy status to penicillin
CPT/HCPCS: 99283

== ENCOUNTER 2024-01-24 15:39 | Emergency (ER) | payer OTHER, BC ==
--- OUTSIDE RECORDS SUMMARY | 2024-01-24 15:43 | XMS REPORT | Continuity of Care Document ---
Author Name Unknown Address [address] [facility] [address] [place] [address] [facility] Address [address] [facility]. [address] [place] [address] Care Team Providers Care Tube Test Technician Name Role Phone Collin Chapincito Olivarez Primary Care Physician [phone] TERESA PALOMINO Attending Clinician Unav ailantonino Armstrong Attending Clinician Unavailable Carlos Hays Attending Clinician [phone] CARLOS BRIONES Attending Clinician Unavai srinivas Unknown, Attending Attending Clinician Unavailab MAYR Styles Attending Clinician Unavailable Mary Kwon Attending Clinician [phone] Doctor Unassigned, [place] Attending Clinician U Teresa Fregoso MD Attending Clinician [phone] TERESA PALOMINO Attending Clinician Unavailnichol e Vanessa Attending Clinician Unavailable BRICE MICHEL Attending Clinician Unavailable Nathaniel Admitting Clinician Unavailable Vanessa Admitting Clinician Unavailable Payers Payer Name Policy Type Policy Number Effective Date Expirati on Date Source [place] [id number] 2006 00:00:00 [place] [id number] [place] [id number] 2016 00:00:00 Problems Condition Name Condition Details Condition Category Status Onset Date Resolution Date Last Treatment Date Treating Clinician Comments Source 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 Active 05-13 00:00: 00 [facility] Hypertensi on Hypertensi on Disease Active 05-13 00:00: 00 [facility] Chronic pain disorder Chronic pain disorder Disease Active 05-13 00:00: 00 [facility] Anxiety state Anxiety state Disease Active 05-13 00:00: 00 [facility] Age related osteoporos is Age related osteoporos is Disease Active 05-13 00:00: 00 [facility] Vitamin B12 deficiency (non anemic) Vitamin B12 deficiency (non anemic) Disease Active 05-13 00:00: 00 [facility] Rest pain of both lower extremitie s due to atheroscle rosis Rest pain of both lower extremitie s due to atheroscle rosis Disease Active 05-13 00:00: 00 [facility] 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 Disease Active 05-13 00:00: 00 [facility] Peripheral vascular disorder due to diabetes mellitus Peripheral vascular disorder due to diabetes mellitus Disease Active 05-13 00:00: 00 [facility] Other chronic diseases of tonsils and adenoids Other chronic diseases of tonsils and adenoids Disease Active 05-13 00:00: 00 [facility] Osteoarthr osis Osteoarthr osis Disease Active 05-13 00:00: 00 [facility] Osteoarthr itis of knee Osteoarthr itis of knee Disease Active 05-13 00:00: 00 [facility] Normal body mass index (BMI) Normal body mass index (BMI) Disease Active 05-13 00:00: 00 [facility] Major depressive disorder, single episode, unspecifie d Major depressive disorder, single episode, unspecifie d Disease Active 05-13 00:00: 00 [facility] Lumbosacra l spondylosi s without myelopathy Lumbosacra l spondylosi s without myelopathy Disease Active 05-13 00:00: 00 [facility] Right hip pain Right hip pain Disease Active 2015-03 00:00: 00 [facility] 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 Active [facility] Hyperlipid emia Hyperlipid emia Problem Active [facility] Migraine Migraine Problem Active [facility] Has a sore throat Has a Sore Throat Problem Active [facility] Acute bronchitis Acute Bronchitis Problem Active [facility] Osteoarthr itis of hip Osteoarthr itis of Hip Problem Active [facility] Low back pain Low Back Pain Problem Active [facility] Fatigue Fatigue Problem Active [facility] Chronic cough Chronic Cough Problem Active [facility] Increased frequency of urination Increased Frequency of Urination Problem Active [facility] Allergies, Adverse Reactions, Alerts Allergy Name Allergy Type Status Severity Reaction(s) Onset Date Inactive Date Treating Clinician Comments Source Penicill ins Propensi ty to adverse reaction s Active Other - See comments 2015-03 00:00: 00 Redness at injection site [facility] PENICILL INS Drug Class Active Other-Cmnt 2015-03 00:00: 00 [facility] Penicill ins Propensi ty to adverse reaction s Active Other - See comments 2015-03 00:00: 00 Redness at injection site [facility] PENICILL INS Allergy to substanc e Active [facility] Social History Social Habit Start Date Stop Date Quantity Comments Source Exposure to SARS-CoV-2 (event) 2022-05-03 00:00:00 2022-05-13 15:25:00 Not sure [facility] Alcohol intake 2022-05-13 00:00:00 2022-05-13 00:00:00 0 /d [facility] Sex Ass[birth year] At 1945 00:00:00 1945 00:00:00 [facility] Smoking Status Start Date Stop Date Source Never smoked tobacco [facility] Medications Ordered Medication Name Filled Medication Name Start Date Stop Date Current Medication? Ordering Clinician Indication Dosage Frequency Signature (SIG) Comments Components Source triamcinolo ne acetonide (KENALOG) injection 40 mg 10-09 23:00: 00 10-09 21:53 :00 No [id number] 40mg [facility] DICLOFENAC 75 mg EC tablet 2018-03 00:00: 00 Yes [id number] TAKE 1 TABLET BY MOUTH TWICE DAILY WITH MEALS [facility] DICLOFENAC 75 mg EC tablet 2015-03 00:00: 00 Yes TAKE 1 TABLET BY MOUTH TWICE DAILY WITH MEALS [facility] SERTraline (ZOLOFT) 50 mg tablet 2015-03 00:00: 00 Yes TK 3 TS PO QD [facility] oxybutynin (DITROPAN-X L) 10 mg 24 hr tablet 2015-03 00:00: 00 Yes TK 1 T PO QD [facility] SUMAtriptan (IMITREX) 6 mg/0.5 mL injection 10-31 00:00: 00 Yes INJECT ONE-HALF (0.5) ML(S) SUBCUTANEO USLY FOR HEADACHE. MAY REPEAT IN ONE HOUR NEEDED. [facility] diclofenac (VOLTAREN) 50 mg EC tablet 06-18 00:00: 00 Yes TAKE 1 TABLET BY MOUTH TWICE DAILY [facility] alendronate 70 mg tablet TAKE 1 TABLET BY MOUTH EVERY WEEK 30 MINUTES BEFORE FIRST FOOD OR BEVERAGE OR MEDICINE OF THE DAY WITH WATER alendronate 70 mg tablet TAKE 1 TABLET BY MOUTH EVERY WEEK 30 MINUTES BEFORE FIRST FOOD OR BEVERAGE OR MEDICINE OF THE DAY WITH WATER No alendronat e 70 mg tablet TAKE 1 TABLET BY MOUTH EVERY WEEK 30 MINUTES BEFORE FIRST FOOD OR BEVERAGE OR MEDICINE OF THE DAY WITH WATER [facility] alprazolam 0.5 mg tablet TAKE 1 TABLET BY MOUTH THREE TIMES DAILY alprazolam 0.5 mg tablet TAKE 1 TABLET BY MOUTH THREE TIMES DAILY No alprazolam 0.5 mg tablet TAKE 1 TABLET BY MOUTH THREE TIMES DAILY [facility] amlodipine 5 mg tablet TAKE 1 TABLET BY MOUTH EVERY DAY amlodipine 5 mg tablet TAKE 1 TABLET BY MOUTH EVERY DAY No amlodipine 5 mg tablet TAKE 1 TABLET BY MOUTH EVERY DAY [facility] bupropion HCl XL 150 mg 24 hr tablet, extended release TAKE 1 TABLET BY MOUTH EVERY DAY IN THE MORNING bupropion HCl XL 150 mg 24 hr tablet, extended release TAKE 1 TABLET BY MOUTH EVERY DAY IN THE MORNING No bupropion HCl XL 150 mg 24 hr tablet, extended release TAKE 1 TABLET BY MOUTH EVERY DAY IN THE MORNING [facility] copay adjustment copay adjustment No copay adjustment [facility] hydrocodone 7.5 mg-acetamin ophen 325 mg tablet hydrocodone 7.5 mg-acetamin ophen 325 mg tablet No hydrocodon e 7.5 mg-acetami nophen 325 mg tablet [facility] levothyroxi ne 25 mcg tablet Take 1 tablet every day by oral route. levothyroxi ne 25 mcg tablet Take 1 tablet every day by oral route. No 1 Q1D levothyrox ine 25 mcg tablet Take 1 tablet every day by oral route. [facility] Medrol (Pawel) 4 mg tablets in a dose pack Take 1 dose pk by oral route. Medrol (Pawel) 4 mg tablets in a dose pack Take 1 dose pk by oral route. No 1dose pk(s) Medrol (Pawel) 4 mg tablets in a dose pack Take 1 dose pk by oral route. [facility] meloxicam 15 mg tablet TAKE 1 TABLET BY MOUTH EVERY DAY meloxicam 15 mg tablet TAKE 1 TABLET BY MOUTH EVERY DAY No meloxicam 15 mg tablet TAKE 1 TABLET BY MOUTH EVERY DAY [facility] mupirocin 2 % topical ointment APPLY TOPICALLY TO THE AFFECTED AREA TWICE DAILY FOR 5 DAYS mupirocin 2 % topical ointment APPLY TOPICALLY TO THE AFFECTED AREA TWICE DAILY FOR 5 DAYS No mupirocin 2 % topical ointment APPLY TOPICALLY TO THE AFFECTED AREA TWICE DAILY FOR 5 DAYS [facility] nitrofurant oin monohydrate /macrocryst als 100 mg capsule Take 1 capsule twice a day by oral route for 7 days. nitrofurant oin monohydrate /macrocryst als 100 mg capsule Take 1 capsule twice a day by oral route for 7 days. No nitrofuran toin monohydrat e/macrocry stals 100 mg capsule Take 1 capsule twice a day by oral route for 7 days. [facility] Prescriptio n - New Prescriptio n - New No Prescripti on - New [facility] rosuvastati n 20 mg tablet TAKE 1 TABLET BY MOUTH AT BEDTIME rosuvastati n 20 mg tablet TAKE 1 TABLET BY MOUTH AT BEDTIME No rosuvastat in 20 mg tablet TAKE 1 TABLET BY MOUTH AT BEDTIME [facility] sertraline 100 mg tablet TAKE 1 TABLET BY MOUTH TWICE DAILY sertraline 100 mg tablet TAKE 1 TABLET BY MOUTH TWICE DAILY No sertraline 100 mg tablet TAKE 1 TABLET BY MOUTH TWICE DAILY [facility] simvastatin 40 mg tablet TAKE ONE TABLET BY MOUTH DAILY simvastatin 40 mg tablet TAKE ONE TABLET BY MOUTH DAILY No simvastati n 40 mg tablet TAKE ONE TABLET BY MOUTH DAILY [facility] sumatriptan 100 mg tablet TAKE 1 TABLET BY MOUTH TWICE DAILY AT LEAST 2 HOURS BETWEEN DOSES NEEDED sumatriptan 100 mg tablet TAKE 1 TABLET BY MOUTH TWICE DAILY AT LEAST 2 HOURS BETWEEN DOSES NEEDED No sumatripta n 100 mg tablet TAKE 1 TABLET BY MOUTH TWICE DAILY AT LEAST 2 HOURS BETWEEN DOSES NEEDED [facility] sumatriptan 6 mg/0.5 mL subcutaneou s pen injector INJECT 0.5ML UNDER THE SKIN FOR HEADACHE. MAY REPEAT IN 1 HOUR NEEDED sumatriptan 6 mg/0.5 mL subcutaneou s pen injector INJECT 0.5ML UNDER THE SKIN FOR HEADACHE. MAY REPEAT IN 1 HOUR NEEDED No sumatripta n 6 mg/0.5 mL subcutaneo us pen injector INJECT 0.5ML UNDER THE SKIN FOR HEADACHE. MAY REPEAT IN 1 HOUR NEEDED [facility] tizanidine 2 mg tablet TAKE 1 TABLET BY MOUTH TWICE DAILY NEEDED tizanidine 2 mg tablet TAKE 1 TABLET BY MOUTH TWICE DAILY NEEDED No tizanidine 2 mg tablet TAKE 1 TABLET BY MOUTH TWICE DAILY NEEDED [facility] tramadol 50 mg tablet TAKE 1 TABLET BY MOUTH THREE TIMES DAILY NEEDED tramadol 50 mg tablet TAKE 1 TABLET BY MOUTH THREE TIMES DAILY NEEDED No tramadol 50 mg tablet TAKE 1 TABLET BY MOUTH THREE TIMES DAILY NEEDED [facility] Immunizations Ordered Immunization Name Filled Immunization Name Date Status Comments Source influenza, injectable, quadrivalent influenza, injectable, quadrivalent Unknown Completed [facility] pneumococcal conjugate PCV 13 pneumococcal conjugate PCV 13 Unknown Completed [facility] pneumococcal polysaccharide PPV23 pneumococcal polysaccharide PPV23 Unknown Completed [facility] zoster live zoster live Unknown Completed [facility] pneumococcal, unspecified formulation pneumococcal, unspecified formulation Unknown Completed [facility] influenza, recombinant, injectable, preservative free influenza, recombinant, injectable, preservative free Unknown Completed [facility] Vital Signs Vital Name Observation Time Observation Value Comments S ource BP Systolic 2023-04-21 00:00:00 140 mm[Hg] [facility] BP Diastolic 2023-04-21 00:00:00 62 mm[Hg] [facility] Body Weight 2023-04-21 00:00:00 137 [lb_av] [facility] Systolic blood pressure 2022-05-13 22:01:00 117 mm[Hg] [facility] Diastolic blood pressure 2022-05-13 22:01:00 62 mm[Hg] [facility] Heart rate 2022-05-13 22:01:00 73 /min [facility] Body temperature 2022-05-13 22:01:00 36.28 Lupe [facility] Respiratory rate 2022-05-13 22:01:00 18 /min [facility] Body height 2022-05-13 22:01:00 160 cm [facility] Body weight 2022-05-13 22:01:00 61.644 kg [facility] BMI 2022-05-13 22:01:00 24.07 kg/m2 [facility] Oxygen saturation in Arterial blood by Pulse oximetry 2022-05-13 22:01:00 98 /min [facility] Systolic blood pressure 2022-02-18 20:04:00 135 mm[Hg] [facility] Diastolic blood pressure 2022-02-18 20:04:00 84 mm[Hg] [facility] Heart rate 2022-02-18 20:04:00 65 /min [facility] Body weight 2022-02-18 20:04:00 63.05 kg [facility] BMI 2022-02-18 20:04:00 24.62 kg/m2 [facility] Oxygen saturation in Arterial blood by Pulse oximetry 2022-02-18 20:04:00 100 /min [facility] Systolic blood pressure 2022-01-03 14:08:00 126 mm[Hg] [facility] Diastolic blood pressure 2022-01-03 14:08:00 80 mm[Hg] [facility] Heart rate 2022-01-03 14:08:00 59 /min [facility] Body height 2022-01-03 14:08:00 160 cm [facility] Body weight 2022-01-03 14:08:00 63.277 kg [facility] BMI 2022-01-03 14:08:00 24.71 kg/m2 [facility] Oxygen saturation in Arterial blood by Pulse oximetry 2022-01-03 14:08:00 100 /min [facility] Systolic blood pressure 2021-10-09 21:12:00 114 mm[Hg] [facility] Diastolic blood pressure 2021-10-09 21:12:00 72 mm[Hg] [facility] Heart rate 2021-10-09 21:12:00 67 /min [facility] Body height 2021-10-09 21:12:00 161.3 cm [facility] Body weight 2021-10-09 21:12:00 62.596 kg [facility] BMI 2021-10-09 21:12:00 24.06 kg/m2 [facility] Oxygen saturation in Arterial blood by Pulse oximetry 2021-10-09 21:12:00 96 /min [facility] Procedures Procedure Date / Time Performed Performing Clinician Source XR, knee, 1 or 2 view 2023-04-16 00:00:00 [facility] XR, knee, 1 or 2 view 2023-04-03 00:00:00 [facility] XR HIPS 2 VW LEFT 2022-05-13 22:46:00 Henna Briones [facility] XR HAND 3+ VW LEFT 2022-05-13 22:46:00 Milo Briones [facility] XR KNEE 3 VW BILATERAL 2022-05-13 22:46:00 Georgia Briones [facility] ASSIGNMENT OF BENEFITS 2021-12-31 20:31:04 Docto r Unassigned, [place] [facility] Bladder Suspension [facility] Encounters Start Date/Time End Date/Time Encounter Type Admission Type Attending [facility] Care Department Encounter ID Source 2023-04-21 11:22:00 2023-04-21 11:22:00 Outpatient TERESA ARGUELLO [facility] [id number] [facility] 2023-04-21 00:00:00 2023-04-21 00:00:00 Outpatient Sarahald MMG [facility] [id number] [facility] 2023-04-21 00:00:00 2023-04-21 00:00:00 Teresa Palomino MD: [address], [address], [place] [address] , Ph. MMG [facility] [id number] [facility] 2023-04-09 00:00:00 2023-04-09 00:00:00 Outpatient Sarahald MMG [facility] [id number] [facility] 2022-05-13 16:22:07 2022-05-13 23:59:00 Hospital Encounter Carlos Briones [facility] [id number] 350.1.13.10 4.2.7.2.686 [id number] [facility] 2022-05-13 16:00:00 2022-05-13 17:54:11 Outpatient CARLOS YEAGER [facility] [id number] [facility] 2022-05-13 16:00:00 2022-05-13 17:54:11 Urgent Care Carlos Briones Unknown, Attending [facility] 1..840.114 350.1.13.10 4.2.7.2.686 [id number] [facility] 2022-05-13 16:21:20 2022-05-13 16:21:20 Hospital Encounter Carlos Briones [facility] 1..840.114 350.1.13.10 4.2.7.2.686 [id number] [facility] 2022-05-13 16:19:49 2022-05-13 16:20:00 Hospital Encounter Carlos Briones [facility] 1..840.114 350.1.13.10 4.2.7.2.686 [id number] [facility] 2022-02-18 14:10:00 2022-02-18 23:59:00 Outpatient R MARY RICHARDSON [facility] [id number] [facility] 2022-02-18 13:15:00 2022-02-18 15:43:48 [facility] 1..840.114 350.1.13.10 4.2.7.2.686 [id number] [facility] 2022-01-03 09:00:00 2022-01-03 09:32:27 Outpatient R MARY RICHARDSON [facility] [id number] [facility] 2022-01-03 09:00:00 2022-01-03 09:32:27 [facility] 1..840.114 350.1.13.10 4.2.7.2.686 [id number] [facility] 2021-12-31 15:30:00 2021-12-31 15:30:00 Outpatient MARY BROOKE [facility] [id number] [facility] 2021-12-31 00:00:00 2021-12-31 00:00:00 Orders Only Doctor Unassigned, [place] [facility] 1.20.114 350.1.13.10 4.2.7.2.686 [id number] [facility] 2021-12-30 00:00:00 2021-12-30 00:00:00 Telephone Teresa Palomino [facility] 1.84114 350.1.13.10 4.2.7.2.686 [id number] [facility] 2021-10-09 16:15:00 2021-10-09 17:14:53 [id number] 2021-10-09 16:15:00 2021-10-09 17:14:53 Office Visit Teresa Palomino [facility] 1.84114 350.1.13.10 4.2.7.2.686 [id number] [facility] 2020-11-08 09:55:00 2020-11-08 23:59:00 Outpatient MARY BROOKE [facility] [id number] [facility] 2020-11-08 00:00:00 2020-11-08 00:00:00 Orders Only Doctor Unassigned, [place] [facility] 1.20.114 350.1.13.10 4.2.7.2.686 [id number] [facility] 2020-11-08 00:00:00 2020-11-08 00:00:00 Letter (Out) Doctor Unassigned, [place] [facility] 1.2840.114 350.1.13.10 4.2.7.2.686 [id number] [facility] 2020-09-27 08:22:39 2020-09-27 08:37:39 Office Visit Mary Richardson [facility] 1.2.840.114 350.1.13.10 4.2.7.2.686 [id number] [facility] 2020-09-27 08:30:00 2020-09-27 08:30:00 Outpatient MARY BROOKE [facility] [id number] [facility] 2020-09-27 00:00:00 2020-09-27 00:00:00 Orders Only Doctor Unassigned, [place] [facility] [id number] 350.1.13.10 4.2.7.2.686 [id number] [facility] 2017-09-28 06:11:00 2017-09-28 06:11:00 Outpatient Vanessa MMG [facility] [id number] [facility] 2017-09-28 00:00:00 2017-09-28 00:00:00 Outpatient Vanessa MMG [facility] [id number] [facility] 2012-12-30 09:55:00 2012-12-30 09:55:00 Outpatient BRICE FALLON [facility] [id number] [facility]
--- NOTE | 2024-01-24 16:32 | EDPHYS ---
Physician Documentation [facility] Name: Aniya Goldstein Age: 78 yrs Sex: Female : 1945 Arrival Date: 01/24/2024 Time: 15:39 Bed 13 Private MD: ED Physician Marnie Toney HPI: 01/23 16:08 This 78 yrs old Female presents to ER via Ambulatory with complaints of Foot Injury - sp3 right. 16:08 78-year-old female with sciatica, hypertension presents to the ED with right metatarsal sp3 first toe pain secondary to dropping "a plate" on it approximately 1 hour prior to arrival. She denies any secondary injury. Review of systems otherwise negative.. Historical: - Allergies: 15:48 PENICILLINS; ll1 - PMHx: 15:48 Anxiety; Chronic back pain and hip pain; depressive disorder; Hypertensive disorder; ll1 - PSHx: 15:48 Appendectomy; Total abdominal hysterectomy; ll1 - Immunization history:: Adult Immunizations up to date. - Infectious Disease History:: Denies. - Social history:: Smoking status: Patient denies any tobacco usage or history of. ROS: 16:09 Constitutional: Negative for fever, chills, and weight loss, Eyes: Negative for injury, sp3 pain, redness, and discharge, ENT: Negative for injury, pain, and discharge, Neck: Negative for injury, pain, and swelling, Cardiovascular: Negative for chest pain, palpitations, and edema, Respiratory: Negative for shortness of breath, cough, wheezing, and pleuritic chest pain, Abdomen/GI: Negative for abdominal pain, nausea, vomiting, diarrhea, and constipation, Back: Negative for injury and pain, Skin: Negative for injury, rash, and discoloration, Neuro: Negative for headache, weakness, numbness, tingling, and seizure, Psych: Negative for depression, anxiety, suicide ideation, homicidal ideation, and hallucinations, Allergy/Immunology: Negative for hives, rash, and allergies, Endocrine: Negative for neck swelling, polydipsia, polyuria, polyphagia, and marked weight changes, 16:09 All other systems are negative, Exam: 16:10 Constitutional: This is a well developed, well nourished patient who is awake, alert, sp3 and in no acute distress. Head/Face: Normocephalic, atraumatic. Eyes: Pupils equal round and reactive to light, extra-ocular motions intact. Lids and lashes normal. Conjunctiva and sclera are non-icteric and not injected. Cornea within normal limits. Periorbital areas with no swelling, redness, or edema. Neck: Trachea midline, no thyromegaly or masses palpated, and no cervical lymphadenopathy. Supple, full range of motion without nuchal rigidity, or vertebral point tenderness. No Meningismus. Chest/axilla: Normal chest wall appearance and motion. Nontender with no deformity. No lesions are appreciated. Cardiovascular: Regular rate and rhythm with a normal S1 and S2. No gallops, murmurs, or rubs. Normal PMI, no JVD. No pulse deficits. Respiratory: Lungs have equal breath sounds bilaterally, clear to auscultation and percussion. No rales, rhonchi or wheezes noted. No increased work of breathing, no retractions or nasal flaring. Abdomen/GI: Soft, non-tender, with normal bowel sounds. No distension or tympany. No guarding or rebound. No evidence of tenderness throughout. Back: No spinal tenderness. No costovertebral tenderness. Full range of motion. Skin: Warm, dry with normal turgor. Normal color with no rashes, no lesions, and no evidence of cellulitis. Neuro: Awake and alert, GCS 15, oriented to person, place, time, and situation. Cranial nerves II-XII grossly intact. Motor strength 5/5 in all extremities. Sensory grossly intact. Cerebellar exam normal. Normal gait. Psych: Awake, alert, with orientation to person, place and time. Behavior, mood, and affect are within normal limits. 16:10 Musculoskeletal/extremity: Ecchymoses and bruising noted on the first proximal metatarsal of the great toe on the right foot. Neurovascularly intact.. Vital Signs: 15:52 BP 104 / 77; Pulse 76; Resp 16; Temp 98; Pulse Ox 93% on R/A; Weight 60.78 kg; Height 5 ll1 ft. 5 in. ; Pain 4/10; 15:52 Body Mass Index 22.30 (60.78 kg, 165.1 cm) ll1 15:52 Pain Scale: Adult ll1 MDM: 15:57 Medical Screening Exam initiated sp3 16:10 Data reviewed: vital signs, nurses notes, radiologic studies. ED course: Differential sp3 diagnosis right first toe fracture versus contusion. X-ray pending.. 16:31 ED course: X-ray demonstrates no fracture. Will safely discharge patient home with sp3 diagnosis contusion.. 01/23 15:57 Order name: Foot Right 3 View XRAY; Complete Time: 16:36 sp3 Administered Medications: No medications were administered Disposition Summary: 01/24/24 16:32 Discharge Ordered Notes: Location: Home sp3 Condition: Stable sp3 Diagnosis - Foot contusion, right sp3 Followup: sp3 - With: Private Physician - When: Upon discharge from the Emergency Department - Reason: Continuance of care Discharge Instructions: - Discharge Summary Sheet sp3 - Foot Contusion sp3 Forms: - Medication Reconciliation Form sp3 - Antibiotic Education sp3 - Prescription Opioid Use sp3 - Patient Portal Instructions sp3 - Leadership Thank You Letter sp3 Signatures: Dispatcher [employer] EDLuh Alvarado RN RN ll1 Marnie Toney MD MD sp3 Natali Quigley RN RN mb9
--- NOTE | 2024-01-24 16:32 | ER ---
Nurse's Notes [facility] [place] Name: Aniya Goldstein Age: 78 yrs Sex: Female : 1945 Arrival Date: 01/24/2024 Time: 15:39 Bed 13 Private MD: Diagnosis: Foot contusion, right Presentation: 01/23 15:52 Chief complaint: Patient states: Dropped a decorative plate on her R foot 1 hour [employer]. ll1 Bruising noted near 1st digit. Coronavirus screen: Client denies travel out of the [place] in the last 14 days. At this time, the client does not indicate any symptoms associated with coronavirus-19. Ebola Screen: Patient denies travel to an Ebola-affected area in the 21 days before illness onset. Initial Sepsis Screen: Does the patient meet any 2 criteria? No. Patient's initial sepsis screen is negative. Does the patient have a suspected source of infection? No. Patient's initial sepsis screen is negative. Risk Assessment: Do you want to hurt yourself or someone else? Patient reports no desire to harm self or others. Onset of symptoms was January 24, 2024. 15:52 Method Of Arrival: Ambulatory ll1 15:52 Acuity: DEJAN 4 ll1 Triage Assessment: 15:53 General: Appears uncomfortable, Behavior is calm, cooperative, appropriate for age. ll1 Pain: Complains of pain in right foot Pain currently is 4 out of 10 on a pain scale. Quality of pain is described as aching. Musculoskeletal: Reports pain in right foot. Injury Description: Bruise. Historical: - Allergies: 15:48 PENICILLINS; ll1 - PMHx: 15:48 Anxiety; Chronic back pain and hip pain; depressive disorder; Hypertensive disorder; ll1 - PSHx: 15:48 Appendectomy; Total abdominal hysterectomy; ll1 - Immunization history:: Adult Immunizations up to date. - Infectious Disease History:: Denies. - Social history:: Smoking status: Patient denies any tobacco usage or history of. Screenin:08 [facility] ED Fall Risk Assessment (Adult) History of falling in the last 3 months, mb9 including since admission No falls in past 3 months (0 pts) Confusion or Disorientation No (0 pts) Intoxicated or Sedated No (0 pts) Impaired Gait No (0 pts) Mobility Assist Device Used No (0 pt) Altered Elimination No (0 pt) Score/Fall Risk Level 0 - 2 = Low Risk Oriented to surroundings, Maintained a safe environment, Educated pt \T\ family on fall prevention, incl call for assistance when getting out of bed. Abuse screen: Denies threats or abuse. Nutritional screening: No deficits noted. Tuberculosis screening: No symptoms or risk factors identified. Assessment: 16:53 Reassessment: Patient appears in no apparent distress at this time. No changes from mb9 previously documented assessment. Patient and/or family updated on plan of care and expected duration. Pain level reassessed. Patient is alert, oriented x 3, equal unlabored respirations, skin warm/dry/pink. Vital Signs: 15:52 BP 104 / 77; Pulse 76; Resp 16; Temp 98; Pulse Ox 93% on R/A; Weight 60.78 kg; Height 5 ll1 ft. 5 in. ; Pain 4/10; 15:52 Body Mass Index 22.30 (60.78 kg, 165.1 cm) ll1 15:52 Pain Scale: Adult ll1 ED Course: 15:43 Patient arrived in ED. im 15:48 Arm band placed on Patient placed in an exam room, on a stretcher. ll1 15:49 Natali Quigley RN is Primary Nurse. mb9 15:52 Marnie Toney MD is Attending Physician. sp3 15:53 Triage completed. ll1 16:08 Bed in low position. Call light in reach. Side rails up X 1. Provided Education on: mb9 press call light if needing anything. Client placed on continuous cardiac and pulse oximetry monitoring. NIBP monitoring applied. 16:08 No provider procedures requiring assistance completed. Patient did not have IV access mb9 during this emergency room visit. 16:21 Foot Right 3 View XRAY In Process Unspecified. EDMS Administered Medications: No medications were administered Medication: 16:08 VIS not applicable for this client. mb9 Outcome: 16:32 Discharge ordered by . sp3 16:54 Discharged to home ambulatory, mb9 16:54 Condition: stable 16:54 Discharge instructions given to patient, Instructed on discharge instructions, follow up and referral plans. Demonstrated understanding of instructions, follow-up care, 16:54 Patient left the ED. mb9 Signatures: Dispatcher [employer] EDMS Luh Garay RN RN ll1 aMrnie Toney MD MD sp3 Soraida, Natali Washington RN RN mb9 Sayra Miller
--- NOTE | 2024-01-24 16:34 | RAD REPORT ---
EXAM: Foot Right 3 View HISTORY: SMASH INJURY COMPARISON: None FINDINGS: Bones: No acute fracture identified. Alignment:No significant malalignment. Degenerative changes:Mild to moderate degenerative changes are present at the first MTP joint. Other: n/a IMPRESSION: No evidence of acute osseous abnormality involving the imaged foot.
[2024-01-24 17:17] VITALS: BP 104/77; TEMP 98; O2SAT 93
== END 2024-01-24 16:54 | disposition home or self-care (01) ==
LOC: ER 15:39
DX: S90.31XA Contusion of right foot, initial encounter (principal)
CPT/HCPCS: 99283

== ENCOUNTER 2024-02-10 12:19 | Emergency (ER) | payer OTHER, BC ==
--- OUTSIDE RECORDS SUMMARY | 2024-02-10 12:23 | XMS REPORT | Continuity of Care Document ---
Author Name Unknown Address [address] [facility] [address] [place] [address] [facility] Address [address] [facility]. [address] [place] [address] Care Team Providers Care Hurl Shaker Name Role Phone Collin Chapincito Olivarez Primary Care Physician [phone] TERESA PALOMINO Attending Clinician Unav ailantonino Armstrong Attending Clinician Unavailable Carlos Hays Attending Clinician [phone] CARLOS BRIONES Attending Clinician Unavai srinivas Unknown, Attending Attending Clinician Unavailab MARY Styles Attending Clinician Unavailable Mary Kwon Attending Clinician [phone] Doctor Unassigned, [place] Attending Clinician U Teresa Fregoso MD Attending Clinician [phone] TERESA PALOMINO Attending Clinician Unavailnichol e Vanessa Attending Clinician Unavailable BRICE MICHEL Attending Clinician Unavailable Nathaniel Admitting Clinician Unavailable Vanessa Admitting Clinician Unavailable Payers Payer Name Policy Type Policy Number Effective Date Expirati on Date Source [place] [id number] 2006 00:00:00 [place] [id number] [place] [id number] 2016 00:00:00 Problems Condition Name Condition Details Condition Category Status Onset Date Resolution Date Last Treatment Date Treating Clinician Comments Source 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 Active 05-13 00:00: 00 [facility] Hypertensi on Hypertensi on Disease Active 05-13 00:00: 00 [facility] Chronic pain disorder Chronic pain disorder Disease Active 05-13 00:00: 00 [facility] Anxiety state Anxiety state Disease Active 05-13 00:00: 00 [facility] Age related osteoporos is Age related osteoporos is Disease Active 05-13 00:00: 00 [facility] Vitamin B12 deficiency (non anemic) Vitamin B12 deficiency (non anemic) Disease Active 05-13 00:00: 00 [facility] Rest pain of both lower extremitie s due to atheroscle rosis Rest pain of both lower extremitie s due to atheroscle rosis Disease Active 05-13 00:00: 00 [facility] 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 Disease Active 05-13 00:00: 00 [facility] Peripheral vascular disorder due to diabetes mellitus Peripheral vascular disorder due to diabetes mellitus Disease Active 05-13 00:00: 00 [facility] Other chronic diseases of tonsils and adenoids Other chronic diseases of tonsils and adenoids Disease Active 05-13 00:00: 00 [facility] Osteoarthr osis Osteoarthr osis Disease Active 05-13 00:00: 00 [facility] Osteoarthr itis of knee Osteoarthr itis of knee Disease Active 05-13 00:00: 00 [facility] Normal body mass index (BMI) Normal body mass index (BMI) Disease Active 05-13 00:00: 00 [facility] Major depressive disorder, single episode, unspecifie d Major depressive disorder, single episode, unspecifie d Disease Active 05-13 00:00: 00 [facility] Lumbosacra l spondylosi s without myelopathy Lumbosacra l spondylosi s without myelopathy Disease Active 05-13 00:00: 00 [facility] Right hip pain Right hip pain Disease Active 2015-03 00:00: 00 [facility] 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 Active [facility] Hyperlipid emia Hyperlipid emia Problem Active [facility] Migraine Migraine Problem Active [facility] Has a sore throat Has a Sore Throat Problem Active [facility] Acute bronchitis Acute Bronchitis Problem Active [facility] Osteoarthr itis of hip Osteoarthr itis of Hip Problem Active [facility] Low back pain Low Back Pain Problem Active [facility] Fatigue Fatigue Problem Active [facility] Chronic cough Chronic Cough Problem Active [facility] Increased frequency of urination Increased Frequency of Urination Problem Active [facility] Allergies, Adverse Reactions, Alerts Allergy Name Allergy Type Status Severity Reaction(s) Onset Date Inactive Date Treating Clinician Comments Source Penicill ins Propensi ty to adverse reaction s Active Other - See comments 2015-03 00:00: 00 Redness at injection site [facility] PENICILL INS Drug Class Active Other-Cmnt 2015-03 00:00: 00 [facility] Penicill ins Propensi ty to adverse reaction s Active Other - See comments 2015-03 00:00: 00 Redness at injection site [facility] PENICILL INS Allergy to substanc e Active [facility] Social History Social Habit Start Date Stop Date Quantity Comments Source Exposure to SARS-CoV-2 (event) 2022-05-03 00:00:00 2022-05-13 15:25:00 Not sure [facility] Alcohol intake 2022-05-13 00:00:00 2022-05-13 00:00:00 0 /d [facility] Sex Ass[birth year] At 1945 00:00:00 1945 00:00:00 [facility] Smoking Status Start Date Stop Date Source Never smoked tobacco [facility] Medications Ordered Medication Name Filled Medication Name Start Date Stop Date Current Medication? Ordering Clinician Indication Dosage Frequency Signature (SIG) Comments Components Source triamcinolo ne acetonide (KENALOG) injection 40 mg 10-09 23:00: 00 10-09 21:53 :00 No [id number] 40mg [facility] DICLOFENAC 75 mg EC tablet 2018-03 00:00: 00 Yes [id number] TAKE 1 TABLET BY MOUTH TWICE DAILY WITH MEALS [facility] DICLOFENAC 75 mg EC tablet 2015-03 00:00: 00 Yes TAKE 1 TABLET BY MOUTH TWICE DAILY WITH MEALS [facility] SERTraline (ZOLOFT) 50 mg tablet 2015-03 00:00: 00 Yes TK 3 TS PO QD [facility] oxybutynin (DITROPAN-X L) 10 mg 24 hr tablet 2015-03 00:00: 00 Yes TK 1 T PO QD [facility] SUMAtriptan (IMITREX) 6 mg/0.5 mL injection 10-31 00:00: 00 Yes INJECT ONE-HALF (0.5) ML(S) SUBCUTANEO USLY FOR HEADACHE. MAY REPEAT IN ONE HOUR NEEDED. [facility] diclofenac (VOLTAREN) 50 mg EC tablet 06-18 00:00: 00 Yes TAKE 1 TABLET BY MOUTH TWICE DAILY [facility] alendronate 70 mg tablet TAKE 1 [...] OR MEDICINE OF THE DAY WITH WATER [facility] alprazolam 0.5 mg tablet TAKE 1 TABLET BY MOUTH THREE TIMES DAILY alprazolam 0.5 mg tablet TAKE 1 TABLET BY MOUTH THREE TIMES DAILY No alprazolam 0.5 mg tablet TAKE 1 TABLET BY MOUTH THREE TIMES DAILY [facility] amlodipine 5 mg tablet TAKE 1 TABLET BY MOUTH EVERY DAY amlodipine 5 mg tablet TAKE 1 TABLET BY MOUTH EVERY DAY No amlodipine 5 mg tablet TAKE 1 TABLET BY MOUTH EVERY DAY [facility] bupropion HCl XL 150 [...] BY MOUTH EVERY DAY IN THE MORNING [facility] copay adjustment copay adjustment No copay adjustment [facility] hydrocodone 7.5 mg-acetamin ophen 325 mg tablet hydrocodone 7.5 mg-acetamin ophen 325 mg tablet No hydrocodon e 7.5 mg-acetami nophen 325 mg tablet [facility] levothyroxi ne 25 mcg tablet Take 1 tablet every day by oral route. levothyroxi ne 25 mcg tablet Take 1 tablet every day by oral route. No 1 Q1D levothyrox ine 25 mcg tablet Take 1 tablet every day by oral route. [facility] Medrol (Pawel) 4 mg tablets in a dose pack Take 1 dose pk by oral route. Medrol (Pawel) 4 mg tablets in a dose pack Take 1 dose pk by oral route. No 1dose pk(s) Medrol (Pawel) 4 mg tablets in a dose pack Take 1 dose pk by oral route. [facility] meloxicam 15 mg tablet TAKE 1 TABLET BY MOUTH EVERY DAY meloxicam 15 mg tablet TAKE 1 TABLET BY MOUTH EVERY DAY No meloxicam 15 mg tablet TAKE 1 TABLET BY MOUTH EVERY DAY [facility] mupirocin 2 % topical ointment APPLY TOPICALLY TO THE AFFECTED AREA TWICE DAILY FOR 5 DAYS mupirocin 2 % topical ointment APPLY TOPICALLY TO THE AFFECTED AREA TWICE DAILY FOR 5 DAYS No mupirocin 2 % topical ointment APPLY TOPICALLY TO THE AFFECTED AREA TWICE DAILY FOR 5 DAYS [facility] nitrofurant oin monohydrate /macrocryst [...] day by oral route for 7 days. [facility] Prescriptio n - New Prescriptio n - New No Prescripti on - New [facility] rosuvastati n 20 mg tablet TAKE 1 TABLET BY MOUTH AT BEDTIME rosuvastati n 20 mg tablet TAKE 1 TABLET BY MOUTH AT BEDTIME No rosuvastat in 20 mg tablet TAKE 1 TABLET BY MOUTH AT BEDTIME [facility] sertraline 100 mg tablet TAKE 1 TABLET BY MOUTH TWICE DAILY sertraline 100 mg tablet TAKE 1 TABLET BY MOUTH TWICE DAILY No sertraline 100 mg tablet TAKE 1 TABLET BY MOUTH TWICE DAILY [facility] simvastatin 40 mg tablet TAKE ONE TABLET BY MOUTH DAILY simvastatin 40 mg tablet TAKE ONE TABLET BY MOUTH DAILY No simvastati n 40 mg tablet TAKE ONE TABLET BY MOUTH DAILY [facility] sumatriptan 100 mg tablet TAKE 1 TABLET BY MOUTH TWICE DAILY AT LEAST 2 HOURS BETWEEN DOSES NEEDED sumatriptan 100 mg tablet TAKE 1 TABLET BY MOUTH TWICE DAILY AT LEAST 2 HOURS BETWEEN DOSES NEEDED No sumatripta n 100 mg tablet TAKE 1 TABLET BY MOUTH TWICE DAILY AT LEAST 2 HOURS BETWEEN DOSES NEEDED [facility] sumatriptan 6 mg/0.5 mL [...] HEADACHE. MAY REPEAT IN 1 HOUR NEEDED [facility] tizanidine 2 mg tablet TAKE 1 TABLET BY MOUTH TWICE DAILY NEEDED tizanidine 2 mg tablet TAKE 1 TABLET BY MOUTH TWICE DAILY NEEDED No tizanidine 2 mg tablet TAKE 1 TABLET BY MOUTH TWICE DAILY NEEDED [facility] tramadol 50 mg tablet TAKE 1 TABLET BY MOUTH THREE TIMES DAILY NEEDED tramadol 50 mg tablet TAKE 1 TABLET BY MOUTH THREE TIMES DAILY NEEDED No tramadol 50 mg tablet TAKE 1 TABLET BY MOUTH THREE TIMES DAILY NEEDED [facility] Immunizations Ordered Immunization Name Filled Immunization Name Date Status Comments Source influenza, injectable, quadrivalent influenza, injectable, quadrivalent Unknown Completed [facility] pneumococcal conjugate PCV 13 pneumococcal conjugate PCV 13 Unknown Completed [facility] pneumococcal polysaccharide PPV23 pneumococcal polysaccharide PPV23 Unknown Completed [facility] zoster live zoster live Unknown Completed [facility] pneumococcal, unspecified formulation pneumococcal, unspecified formulation Unknown Completed [facility] influenza, recombinant, injectable, preservative free influenza, recombinant, injectable, preservative free Unknown Completed [facility] Vital Signs Vital Name Observation Time Observation Value Comments S ource BP Systolic 2023-04-21 00:00:00 140 mm[Hg] [facility] BP Diastolic 2023-04-21 00:00:00 62 mm[Hg] [facility] Body Weight 2023-04-21 00:00:00 137 [lb_av] [facility] Systolic blood pressure 2022-05-13 22:01:00 117 mm[Hg] [facility] Diastolic blood pressure 2022-05-13 22:01:00 62 mm[Hg] [facility] Heart rate 2022-05-13 22:01:00 73 /min [facility] Body temperature 2022-05-13 22:01:00 36.28 Lupe [facility] Respiratory rate 2022-05-13 22:01:00 18 /min [facility] Body height 2022-05-13 22:01:00 160 cm [facility] Body weight 2022-05-13 22:01:00 61.644 kg [facility] BMI 2022-05-13 22:01:00 24.07 kg/m2 [facility] Oxygen saturation in Arterial blood by Pulse oximetry 2022-05-13 22:01:00 98 /min [facility] Systolic blood pressure 2022-02-18 20:04:00 135 mm[Hg] [facility] Diastolic blood pressure 2022-02-18 20:04:00 84 mm[Hg] [facility] Heart rate 2022-02-18 20:04:00 65 /min [facility] Body weight 2022-02-18 20:04:00 63.05 kg [facility] BMI 2022-02-18 20:04:00 24.62 kg/m2 [facility] Oxygen saturation in Arterial blood by Pulse oximetry 2022-02-18 20:04:00 100 /min [facility] Systolic blood pressure 2022-01-03 14:08:00 126 mm[Hg] [facility] Diastolic blood pressure 2022-01-03 14:08:00 80 mm[Hg] [facility] Heart rate 2022-01-03 14:08:00 59 /min [facility] Body height 2022-01-03 14:08:00 160 cm [facility] Body weight 2022-01-03 14:08:00 63.277 kg [facility] BMI 2022-01-03 14:08:00 24.71 kg/m2 [facility] Oxygen saturation in Arterial blood by Pulse oximetry 2022-01-03 14:08:00 100 /min [facility] Systolic blood pressure 2021-10-09 21:12:00 114 mm[Hg] [facility] Diastolic blood pressure 2021-10-09 21:12:00 72 mm[Hg] [facility] Heart rate 2021-10-09 21:12:00 67 /min [facility] Body height 2021-10-09 21:12:00 161.3 cm [facility] Body weight 2021-10-09 21:12:00 62.596 kg [facility] BMI 2021-10-09 21:12:00 24.06 kg/m2 [facility] Oxygen saturation in Arterial blood by Pulse oximetry 2021-10-09 21:12:00 96 /min [facility] Procedures Procedure Date / Time Performed Performing Clinician Source XR, knee, 1 or 2 view 2023-04-16 00:00:00 [facility] XR, knee, 1 or 2 view 2023-04-03 00:00:00 [facility] XR HIPS 2 VW LEFT 2022-05-13 22:46:00 Henna Briones [facility] XR HAND 3+ VW LEFT 2022-05-13 22:46:00 Milo Briones [facility] XR KNEE 3 VW BILATERAL 2022-05-13 22:46:00 Georgia Briones [facility] ASSIGNMENT OF BENEFITS 2021-12-31 20:31:04 Docto r Unassigned, [place] [facility] Bladder Suspension [facility] Breast Surgery [facility] Hysterectomy [facility] Encounters Start Date/Time End Date/Time Encounter Type Admission Type Attending [facility] Care Department Encounter ID Source 2023-04-21 11:22:00 2023-04-21 11:22:00 Outpatient TERESA ARGUELLO [facility] [id number] [facility] 2023-04-21 00:00:00 2023-04-21 00:00:00 Outpatient Sarahald [facility] [id number] [facility] 2023-04-21 00:00:00 2023-04-21 00:00:00 Teresa Palomino MD: [address], [address], [place] [address] , Ph. MMG [facility] [id number] [facility] 2023-04-09 00:00:00 2023-04-09 00:00:00 Outpatient Sarahald [facility] [id number] [facility] 2022-05-13 16:22:07 2022-05-13 23:59:00 Hospital Encounter Carlos Briones [facility] [id number] 350.1.13.10 4.2.7.2.686 [id number] [facility] 2022-05-13 16:00:00 2022-05-13 17:54:11 Outpatient CARLOS YEAGER [facility] [id number] [facility] 2022-05-13 16:00:00 2022-05-13 17:54:11 Urgent Care Carlos Briones Unknown, Attending [facility] 1..840.114 350.1.13.10 4.2.7.2.686 [id number] [facility] 2022-05-13 16:21:20 2022-05-13 16:21:20 Hospital Encounter Carlos Briones [facility] 1..840.114 350.1.13.10 4.2.7.2.686 [id number] [facility] 2022-05-13 16:19:49 2022-05-13 16:20:00 Hospital Encounter Carlos Briones [facility] 1..840.114 350.1.13.10 4.2.7.2.686 [id number] [facility] 2022-02-18 14:10:00 2022-02-18 23:59:00 Outpatient R MARY RICHARDSON [facility] [id number] [facility] 2022-02-18 13:15:00 2022-02-18 15:43:48 [facility] 1..840.114 350.1.13.10 4.2.7.2.686 [id number] [facility] 2022-01-03 09:00:00 2022-01-03 09:32:27 Outpatient R MARY RICHARDSON [facility] [id number] [facility] 2022-01-03 09:00:00 2022-01-03 09:32:27 [facility] 1..840.114 350.1.13.10 4.2.7.2.686 [id number] [facility] 2021-12-31 15:30:00 2021-12-31 15:30:00 Outpatient MARY BROOKE [facility] [id number] [facility] 2021-12-31 00:00:00 2021-12-31 00:00:00 Orders Only Doctor Unassigned, [place] [facility] 1.20.114 350.1.13.10 4.2.7.2.686 [id number] [facility] 2021-12-30 00:00:00 2021-12-30 00:00:00 Telephone Teresa Palomino [facility] 1.84114 350.1.13.10 4.2.7.2.686 [id number] [facility] 2021-10-09 16:15:00 2021-10-09 17:14:53 [facility] [id number] [facility] 2021-10-09 16:15:00 2021-10-09 17:14:53 Office Visit Teresa Palomino [facility] 1.84114 350.1.13.10 4.2.7.2.686 [id number] [facility] 2020-11-08 09:55:00 2020-11-08 23:59:00 Outpatient MARY BROOKE [facility] [id number] [facility] 2020-11-08 00:00:00 2020-11-08 00:00:00 Orders Only Doctor Unassigned, [place] [facility] 1.20.114 350.1.13.10 4.2.7.2.686 [id number] [facility] 2020-11-08 00:00:00 2020-11-08 00:00:00 Letter (Out) Doctor Unassigned, [place] [facility] 1.2840.114 350.1.13.10 4.2.7.2.686 [id number] [facility] 2020-09-27 08:22:39 2020-09-27 08:37:39 Office Visit Mary Richardson [facility] 1.2.840.114 350.1.13.10 4.2.7.2.686 [id number] [facility] 2020-09-27 08:30:00 2020-09-27 08:30:00 Outpatient MARY BROOKE [facility] [id number] [facility] 2020-09-27 00:00:00 2020-09-27 00:00:00 Orders Only Doctor Unassigned, [place] [facility] 1.2.840.114 350.1.13.10 4.2.7.2.686 [id number] [facility] 2017-09-28 06:11:00 2017-09-28 06:11:00 Outpatient Vanessa [facility] [id number] [facility] 2017-09-28 00:00:00 2017-09-28 00:00:00 Outpatient Vanessa [facility] [id number] [facility] 2012-12-30 09:55:00 2012-12-30 09:55:00 Outpatient BRICE FALLON [facility] [id number] [facility]
--- NOTE | 2024-02-10 14:08 | RAD REPORT ---
Exam:Humerus Right CLINICAL HISTORY: Right arm pain FINDINGS: No fracture or dislocation seen Osteoporosis
--- NOTE | 2024-02-10 14:09 | RAD REPORT ---
Exam:Forearm Right Clinical history: Right forearm pain Findings: Mildly impacted mildly displaced fracture distal radius
--- NOTE | 2024-02-10 14:10 | RAD REPORT ---
Exam:Wrist Right 3 View HISTORY: Right wrist pain FINDINGS: Mildly impacted mildly displaced fracture distal radius No dislocation. Osteoporosis
[2024-02-10] MEDS ORDERED: IBUPROFEN 400 MG TAB ONE (14:15)
--- NOTE | 2024-02-10 15:00 | ER ---
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 R wrist and arm pain ll1 since. No head injury or LOC. Coronavirus screen: Client denies travel out of the [place] in the last 14 days. At this time, the client does not indicate any symptoms associated with coronavirus-19. Ebola Screen: Patient denies travel to an Ebola-affected area in the 21 days before illness onset. Initial Sepsis Screen: Does the patient meet any 2 criteria? No. Patient's initial sepsis screen is negative. Does the patient have a suspected source of infection? No. Patient's initial sepsis screen is negative. Risk Assessment: Do you want to hurt yourself or someone else? Patient reports no desire to harm self or others. Onset of symptoms was February 10, 2024. 12:57 Method Of Arrival: Ambulatory ll1 12:57 Acuity: DEJAN 4 ll1 Triage Assessment: 12:57 General: Appears uncomfortable, Behavior is calm, cooperative, appropriate for age. ll1 Pain: Complains of pain in right wrist Quality of pain is described as aching. Musculoskeletal: Reports pain in right wrist. Injury Description: s/p fall. Historical: - Allergies: 12:57 PENICILLINS; ll1 - PMHx: 12:57 Anxiety; Chronic back pain and hip pain; depressive disorder; Hypertensive disorder; ll1 - PSHx: 12:57 Appendectomy; Total abdominal hysterectomy; ll1 - Immunization history:: Adult Immunizations up to date. - Social history:: Smoking status: Patient denies any tobacco usage or history of. Screenin:39 [facility] ED Fall Risk Assessment (Adult) History of falling in the last 3 months, jl7 including since admission Yes- single mechanical fall (1 pt) Confusion or Disorientation No (0 pts) Intoxicated or Sedated No (0 pts) Impaired Gait No (0 pts) Mobility Assist Device Used No (0 pt) Altered Elimination No (0 pt) Score/Fall Risk Level 0 - 2 = Low Risk Oriented to surroundings, Maintained a safe environment. Abuse screen: Denies threats or abuse. Denies injuries from another. Nutritional screening: No deficits noted. Tuberculosis screening: No symptoms or risk factors identified. Assessment: 14:13 Reassessment: No changes from previously documented assessment. Patient and/or family rs5 updated on plan of care and expected duration. Pain level reassessed. Patient is alert, oriented x 3, equal unlabored respirations, skin warm/dry/pink. Vital Signs: 12:57 BP 124 / 79; Pulse 69; Resp 17; Temp 97.1; Pulse Ox 100% ; Weight 60.78 kg; Height 5 ll1 ft. 4 in. ; Pain 6/10; 12:57 Body Mass Index 23.00 (60.78 kg, 162.56 cm) ll1 12:57 Pain Scale: Adult ll1 ED Course: 12:22 Patient arrived in ED. im 12:25 Javid Jerez MD is Attending Physician. charles 12:57 Arm band placed on. ll1 12:58 Triage completed. ll1 13:51 Wrist Right 3 View XRAY In Process Unspecified. EDMS 13:51 Forearm Right XRAY In Process Unspecified. EDMS 13:51 Humerus Right XRAY In Process Unspecified. EDMS 14:55 Demarco Carbajal MD is Referral Physician. charles 15:21 Shima Mcfadden, JOCELYN is Primary Nurse. me1 15:39 Patient has correct armband on for positive identification. Provided Education on: jl7 splint care. 15:39 Assist provider with fracture care of right arm and right wrist Fracture is closed. jl7 Obvious deformity is not noted. Circulation, motor and sensation is intact. Set up for procedure. Performed by Javid Jerez MD Reduction was not performed. Immobilized with orthoglass. Post immobilization, circulation, motor and sensation remain intact. Patient tolerated well. Patient did not have IV access during this emergency room visit. Sling \T\ swathe to right arm. Administered Medications: 14:19 Drug: Ibuprofen PO 400 mg PO once Route: PO; ll1 15:42 Follow up: Response: No adverse reaction jl7 15:42 Drug: Hydrocodone-Acetaminophen PO (7.5 mg-325 mg) 1 tabs PO once Route: PO; jl7 15:42 Follow up: Response: Medication administered at discharge. jl7 15:42 Drug: Ondansetron Oral Disintegrating Tablet Oral Disintegrating Tablet 4 mg PO once jl7 Route: PO; 15:42 Follow up: Response: Medication administered at discharge. jl7 Medication: 15:41 VIS not applicable for this client. jl7 Outcome: 14:59 Discharge ordered by . charles 15:39 Discharged to home via wheelchair, with family, jl7 15:39 Condition: stable 15:39 Discharge instructions given to patient, Instructed on discharge instructions, follow up and referral plans. medication usage, Demonstrated understanding of instructions, follow-up care, medications, Prescriptions given X 3, 15:42 Patient left the ED. jl7 Signatures: Dispatcher [employer] EDJavid Mock MD MD cha Leal, Jahala, RN RN jl7 Luh Garay RN RN ll1 Geoffrey Morales RN RN rs5 Sayra Miller Michelle, RN RN me1
--- NOTE | 2024-02-10 15:00 | EDPHYS ---
Physician Documentation [facility] Name: Aniya Goldstein Age: 78 yrs Sex: Female : 1945 Arrival Date: 02/10/2024 Time: 12:19 Bed 27 Private MD: ED Physician Javid Jerez HPI: 02/09 14:53 This 78 yrs old Female presents to ER via Ambulatory with complaints of Arm charles Injury - Right. 14:53 The patient or guardian complains of decreased range of motion, pain, that is acute. charles Historical: - Allergies: 12:57 PENICILLINS; ll1 - PMHx: 12:57 Anxiety; Chronic back pain and hip pain; depressive disorder; Hypertensive disorder; ll1 - PSHx: 12:57 Appendectomy; Total abdominal hysterectomy; ll1 - Immunization history:: Adult Immunizations up to date. - Social history:: Smoking status: Patient denies any tobacco usage or history of. ROS: 14:54 Constitutional: Negative for fever, chills, and weight loss, Eyes: Negative for injury, charles pain, redness, and discharge, ENT: Negative for injury, pain, and discharge, Neck: Negative for injury, pain, and swelling, Cardiovascular: Negative for chest pain, palpitations, and edema, Respiratory: Negative for shortness of breath, cough, wheezing, and pleuritic chest pain, Abdomen/GI: Negative for abdominal pain, nausea, vomiting, diarrhea, and constipation, Back: Negative for injury and pain, : Negative for injury, bleeding, discharge, and swelling, Skin: Negative for injury, rash, and discoloration, Neuro: Negative for headache, weakness, numbness, tingling, and seizure, Psych: Negative for depression, anxiety, suicide ideation, homicidal ideation, and hallucinations, Allergy/Immunology: Negative for hives, rash, and allergies, Endocrine: Negative for neck swelling, polydipsia, polyuria, polyphagia, and marked weight changes, Hematologic/Lymphatic: Negative for swollen nodes, abnormal bleeding, and unusual bruising, 14:54 MS/extremity: Positive for decreased range of motion, pain, swelling, tenderness, of the right wrist, Exam: 14:54 Constitutional: This is a well developed, well nourished patient who is awake, alert, charles and in no acute distress. Head/Face: Normocephalic, atraumatic. Eyes: Pupils equal round and reactive to light, extra-ocular motions intact. Lids and lashes normal. Conjunctiva and sclera are non-icteric and not injected. Cornea within normal limits. Periorbital areas with no swelling, redness, or edema. ENT: Nares patent. No nasal discharge, no septal abnormalities noted. Tympanic membranes are normal and external auditory canals are clear. Oropharynx with no redness, swelling, or masses, exudates, or evidence of obstruction, uvula midline. Mucous membranes moist. Neck: Trachea midline, no thyromegaly or masses palpated, and no cervical lymphadenopathy. Supple, full range of motion without nuchal rigidity, or vertebral point tenderness. No Meningismus. Chest/axilla: Normal chest wall appearance and motion. Nontender with no deformity. No lesions are appreciated. Cardiovascular: Regular rate and rhythm with a normal S1 and S2. No gallops, murmurs, or rubs. Normal PMI, no JVD. No pulse deficits. Respiratory: Lungs have equal breath sounds bilaterally, clear to auscultation and percussion. No rales, rhonchi or wheezes noted. No increased work of breathing, no retractions or nasal flaring. Abdomen/GI: Soft, non-tender, with normal bowel sounds. No distension or tympany. No guarding or rebound. No evidence of tenderness throughout. Back: No spinal tenderness. No costovertebral tenderness. Full range of motion. Female : Normal external genitalia. Neuro: Awake and alert, GCS 15, oriented to person, place, time, and situation. Cranial nerves II-XII grossly intact. Motor strength 5/5 in all extremities. Sensory grossly intact. Cerebellar exam normal. Normal gait. Psych: Awake, alert, with orientation to person, place and time. Behavior, mood, and affect are within normal limits. 14:54 Musculoskeletal/extremity: ROM: limited active range of motion due to pain, limited passive range of motion due to pain, Circulation is intact in all extremities. Sensation intact. Compartment Syndrome exam of affected extremity: is normal. DVT Exam: negative Homans' sign noted on exam, no appreciated bluish discoloration, no erythema, no increased warmth, pain, swelling, tenderness, Vital Signs: 12:57 BP 124 / 79; Pulse 69; Resp 17; Temp 97.1; Pulse Ox 100% ; Weight 60.78 kg; Height 5 ll1 ft. 4 in. ; Pain 6/10; 12:57 Body Mass Index 23.00 (60.78 kg, 162.56 cm) ll1 12:57 Pain Scale: Adult ll1 MDM: 12:27 Medical Screening Exam initiated [facility] 15:03 Differential diagnosis: closed fracture, contusion, abrasion, tendonitis. Data [facility] reviewed: vital signs, nurses notes, radiologic studies, plain films. Consideration of Admission/Observation Escalation of care including admission/observation considered. I considered the following discharge prescriptions or medication management in the emergency department Medications were administered in the Emergency Department. See MAR. Independent interpretation of the following test(s) in the Emergency Department X-Ray: My interpretation is fx. Care significantly affected by the following chronic conditions: Hypertension, anxiety, cbp, depression, hip pain. 02/09 13:02 Order name: Wrist Right 3 View XRAY; Complete Time: 14:55 [facility] 02/09 13:02 Order name: Forearm Right XRAY; Complete Time: 14:55 [facility] 02/09 13:02 Order name: Humerus Right XRAY; Complete Time: 14:55 [facility] 02/09 13:02 Order name: Ice pack; Complete Time: 15:22 [facility] 02/09 15:03 Order name: Sling; Complete Time: 15:35 [facility] Administered Medications: 14:19 Drug: Ibuprofen PO 400 mg PO once Route: PO; ll1 15:42 Follow up: Response: No adverse reaction jl7 15:42 Drug: Hydrocodone-Acetaminophen PO (7.5 mg-325 mg) 1 tabs PO once Route: PO; jl7 15:42 Follow up: Response: Medication administered at discharge. jl7 15:42 Drug: Ondansetron Oral Disintegrating Tablet Oral Disintegrating Tablet 4 mg PO once jl7 Route: PO; 15:42 Follow up: Response: Medication administered at discharge. jl7 Disposition Summary: 02/10/24 14:59 Discharge Ordered Notes: Location: Home charles Problem: new charles Symptoms: have improved charles Condition: Stable charles Diagnosis - Fall on same level, unspecified charles - Unspecified fracture of unspecified forearm, initial encounter for closed fracture charles - impacted distal radius Followup: charles - With: Private Physician - When: 2 - 3 days - Reason: Recheck today's complaints, Continuance of care, Re-evaluation by your physician Followup: [facility] - With: Demarco Carbajal MD - When: 2 - 3 days - Reason: Recheck today's complaints, Re-evaluation by your physician Discharge Instructions: - Discharge Summary Sheet [facility] - Fall Prevention in the Home, Adult charles - Wrist Fracture Treated With Immobilization charles - Wrist Fracture Treated With Immobilization, [id number] [facility] - Fall Prevention in the Home, Adult, [id number] [facility] Forms: - Medication Reconciliation Form [facility] - Antibiotic Education [facility] - Prescription Opioid Use [facility] - Patient Portal Instructions [facility] - Leadership Thank You Letter [facility] Prescriptions: - acetaminophen-codeine 300-30 mg Oral tablet - take 2 tablet ORAL route every 6 hours as needed for pain; 30 tablet; Refills: [facility] 0, Product Selection Permitted - diclofenac sodium 25 mg Oral tablet, delayed release (enteric coated) - take 1 tablet ORAL route 3 times per day; 30 tablet; Refills: 0, Product [facility] Selection Permitted - ondansetron 4 mg Oral Tablet,disintegrating - take 1 tablet ORAL route every 8 hours prn nausea and vomiting; 20 tablet; [facility] Refills: 0, Product Selection Permitted Signatures: Dispatcher [employer] EDMS Javid Jerez MD MD cha Leal, Jahala RN RN jl7 Luh Garay RN RN ll1 Corrections: (The following items were deleted from the chart) 13: 13:02 Forearm Right+RAD.RAD.BRZ ordered. EDMS EDMS 13: 13:02 Humerus Right+RAD.RAD.BRZ ordered. EDMS EDMS
[2024-02-10] MEDS ORDERED: ONDANSETRON 4 MG (ODT) TAB ONE (15:36)
[2024-02-10] MEDS ORDERED: HYDROCODONE/APAP 7.5/325 MG TAB ONE (15:37)
[2024-02-10 16:03] VITALS: BP 124/79; TEMP 97.1; O2SAT 100
== END 2024-02-10 15:42 | disposition home or self-care (01) ==
LOC: ER 12:19
DX: S52.501A Unspecified fracture of the lower end of right radius, initial encounter for closed fracture (principal); W18.30XA Fall on same level, unspecified, initial encounter
CPT/HCPCS: 73090; 73060; 73110; Q0162